=== PATIENT | female | born 1980 | race African-American/Black ===

== ENCOUNTER 2017-07-28 00:56 | Emergency (ER) | payer MEDICAID ==
[2017-07-28 01:09] VITALS: BP 153/108
[2017-07-28] MEDS ORDERED: PREGABALIN 75 MG CAPSULE PO ONE (01:39)
[2017-07-28] MEDS ORDERED: HYDROCODONE/ACETAMINOPHEN 5-325 MG TABLET PO ONE (01:39)
[2017-07-28] MEDS ORDERED: HYDROCODONE/ACETAMINOPHEN 5-325 MG (6 TAB/ER DISP) PO PRN (03:14)
--- NOTE | 2017-07-28 03:20 | ER Document Report ---
ED General - General Chief Complaint: Headache <24 hrs old Stated Complaint: FACE PAIN Time Seen by Provider: 07/28/17 01:16 Notes: Patient is a 36-year-old female who presents with complaint of facial pain. She has a history of trigeminal neuralgia. She just moved today for [place]. Says she ran out of her Lyrica a few days ago and her pain has come about. She is also on gabapentin, Tegretol, Lamictal. She says the Lyrica usually does help. Patient second complaint is of swelling in her right leg. It has been there for approximately a month but has worsened. She denies recent any injuries or trauma to the leg. Leg pain or leg swelling. She has not seen a doctor about the swelling in her leg. She has not had an ultrasound of her leg. No history of DVT or PE. No recent fevers or infections. No other complaints at this time. TRAVEL OUTSIDE OF THE U[place]S. IN LAST 30 DAYS: No - Related Data Allergies/Adverse Reactions: Penicillins Allergy (Verified 07/28/17 01:02) Sulfa (Sulfonamide Antibiotics) Allergy (Verified 07/28/17 01:02) Past Medical History - Social History Smoking Status: Current Every Day Smoker Frequency of alcohol use: None Drug Abuse: None Family History: Reviewed & Not Pertinent Patient has suicidal ideation: No Patient has homicidal ideation: No Pulmonary Medical History: Reports: Hx Asthma Renal/ Medical History: Denies: Hx Peritoneal Dialysis Review of Systems - Review of Systems Notes: My Normal Review Basic REVIEW OF SYSTEMS: CONSTITUTIONAL : Denies fever, chills, or sweats. Denies recent illness. EENT: Right-sided facial pain MUSCULOSKELETAL: Right leg swelling SKIN: Denies rash or skin lesions. NEUROLOGICAL: Denies sensory or motor loss. ALL OTHER SYSTEMS REVIEWED AND NEGATIVE. Physical Exam - Vital signs Vitals: Temp Pulse Resp BP Pulse Ox 98.4 F 87 17 153/108 H 99 07/28/17 01:07 07/28/17 01:07 07/28/17 01:07 07/28/17 01:07 07/28/17 01:07 - Notes Notes: General Appearance: Well nourished, alert, cooperative, no acute distress, moderate obvious discomfort. Vitals: reviewed, See vital signs table. Head: Tenderness over right side of face. Eyes: PERRL, EOMI, Conjuctiva clear Mouth: No decreasd moisture Neck: Supple, no neck tenderness, No thyromegaly Lungs: No wheezing, No rales, No rhonci, No accessory muscle use, good air exchange bilaterally. Heart: Normal rate, Regular rythm, No murmur, no rub Extremities: strength 5/5 in all extremities, good pulses in all extremities, no edema in the right lower extremity. Left lower extremity has just mild edema. I do have the patient pulled on her pants take a look at the skin along her thighs and leg where she is hurting. I do not see any redness or localized swelling that would cause concern for infection. No Rash. Skin: warm, dry, appropriate color, no rash Neuro: speech clear, oriented x 3, normal affect, responds appropriately to questions. Cranial nerves II through XII are intact. Distal sensation intact. Course - Re-evaluation Re-evalutation: 07/28/17 04:34 Patient has trigeminal neuralgia. I did re-prescribe her Lyrica for her. I gave her phone numbers to to local neurologist. She said she moved closer [place] therefore wants a neurologist in [place]. She is also followed by neurologist up in [place] due to possibly having surgery in the future. She said she would also follow-up with them in regards to possibly have the surgery performed. Also gave her a list of family doctors in the area. I offered for her to stay to morning time to obtain ultrasound of her leg as I told her is very important to rule out DVT of her leg. Patient is understanding of this but says she cannot stay to morning and prefers to have an outpatient prescription. I did also talked about giving her a shot of Lovenox the patient says that she does not want to be anticoagulated until she knows whether not fish she feels her has a blood clot. Patient said she would call to have her ultrasound performed today. I did write a prescription for this. I informed her that if she cannot get the ultrasound done through the prescription then she should just return to the ER during the daytime and have the ultrasound performed. Patient encouraged to return to the ER immediately if she has chest pain, shortness of breath, or feels unwell. Patient agrees with plan will be discharged home. Dictation of this chart was performed using voice recognition software; therefore, there may be some unintended grammatical errors. - Vital Signs Vital signs: Temp Pulse Resp BP Pulse Ox 98.4 F 87 17 153/108 H 99 07/28/17 01:07 07/28/17 01:07 07/28/17 01:07 07/28/17 01:07 07/28/17 01:07 Discharge - Discharge Clinical Impression: Right leg swelling, Trigeminal neuralgia of right side of face Condition: Good Disposition: HOME, SELF-CARE Instructions: Family Physicians / Practices, Oral Narcotic Medication ([facility]) Additional Instructions: Please call the number on the prescription this morning to make arrange to have your ultrasound performed today. If there is any difficulty arranging this you can always check in to the ER during the day time and it can be performed that way. It is very important you have this test done as it is used to rule out a blood clot in your leg. please return to the ER if you have chest pain, difficulty breathing, fevers, or worsening leg pain and swelling. Please follow up with Dr. Whipple or Dr. Spence for reevaluation and treatment of your trigeminal neuralgia. Please follow up with a primary care physician for continued management of your chronic medical problems and to help continued treatment of your leg swelling. Prescriptions: Pregabalin [Lyrica 75 mg Capsule] 75 mg PO Q12 #60 capsule Forms: Return to Work, Follow-Up Outpatient Testing Referrals: KATIE WHIPPLE MD [EM[facility]] - Follow up in 3-5 days AUSTIN SPENCE MD [NO LOCAL MD] - Follow up in 3-5 days
== END 2017-07-28 04:12 | disposition home or self-care (01) ==
LOC: ER 00:56
DX: G50.0 Trigeminal neuralgia (principal); R22.41 Localized swelling, mass and lump, right lower limb; F17.200 Nicotine dependence, unspecified, uncomplicated; Z88.0 Allergy status to penicillin; Z88.2 Allergy status to sulfonamides
CPT/HCPCS: 99284; J3490

== ENCOUNTER 2017-08-25 02:00 | Emergency (ER) | payer MEDICAID ==
[2017-08-25] MEDS ORDERED: BUTALB/ACETAMINOPHEN/CAFFEINE 1 TAB EACH PO ONE (02:56)
[2017-08-25] MEDS ORDERED: PREGABALIN 75 MG CAPSULE PO ONE (02:56)
--- NOTE | 2017-08-25 02:57 | ER Document Report ---
ED General - General Chief Complaint: Headache Stated Complaint: HEAD PAIN, SORE THROAT,FACIAL PAIN Time Seen by Provider: 08/25/17 02:45 Notes: Patient is a 36-year-old female who presents emergency department the chief complaint of right-sided facial pain with associated headache. Patient states that she has a history of migraines as well. She admits to light and sound sensitivity at this time. Did not take anything prior to arrival. She does have a history of trigeminal neuralgia. She did recently moved to [place] and has not been able to establish primary care in the area. She states that she was seen here about a month ago and was given a prescription for Lyrica which has helped. She states that she is also been out of her Lamictal, Tegretol, gabapentin. She denies any loss of vision, and states that this headache is consistent with her baseline headaches. She states that she has an established follow-up appointment next with her neurologist in [place] TRAVEL OUTSIDE OF THE U.S. IN LAST 30 DAYS: No - Related Data Allergies/Adverse Reactions: Penicillins Allergy (Verified 07/28/17 01:02) Sulfa (Sulfonamide Antibiotics) Allergy (Verified 07/28/17 01:02) Past Medical History - Social History Smoking Status: Never Smoker Family History: Reviewed & Not Pertinent Pulmonary Medical History: Reports: Hx Asthma Renal/ Medical History: Denies: Hx Peritoneal Dialysis Review of Systems - Review of Systems Constitutional: No symptoms reported EENT: See HPI Cardiovascular: No symptoms reported Respiratory: No symptoms reported Gastrointestinal: No symptoms reported Musculoskeletal: No symptoms reported Skin: No symptoms reported Neurological/Psychological: See HPI -: Yes All other systems reviewed and negative Physical Exam - Vital signs Vitals: Temp Pulse Resp BP Pulse Ox 97.9 F 89 16 167/109 H 95 08/25/17 02:05 08/25/17 02:05 08/25/17 02:05 08/25/17 02:05 08/25/17 02:05 - Notes Notes: PHYSICAL EXAM GENERAL: Alert, interacts well. HEAD: Normocephalic, atraumatic. EYES: Pupils equal, round, and reactive to light. Extraocular movements intact. ENT: Oral mucosa moist, tongue midline. NECK: Full range of motion. Supple. Trachea midline. LUNGS: Clear to auscultation bilaterally, no wheezes, rales, or rhonchi. No respiratory distress. HEART: Regular rate and rhythm. No murmurs, gallops, or rubs. EXTREMITIES: Moves all 4 extremities spontaneously. No edema, radial and dorsalis pedis pulses 2/4 bilaterally. No cyanosis. NEUROLOGICAL: Alert and oriented x4. Face symmetric. Tongue protrudes midline. Extraocular motions intact. Pupils are 2 mm and equally reactive. Normal speech, normal gait. 5 out of 5 strength in both the distal and proximal upper and lower extremities bilaterally. Sensation is grossly intact throughout. Pronator drift normal. PSYCH: Normal affect, normal mood. SKIN: Warm, dry, normal turgor. No rashes or lesions noted. Course - Re-evaluation Re-evalutation: 08/25/17 04:45 Patient does not have any focal neurologic deficits, nuchal rigidity, vital signs are within normal limits no papilledema. Patient is otherwise no acute distress and hemodynamically stable. Patient symptomatically improved after p.o. dose of Fioricet. Low index for suspicion of acute subarachnoid hemorrhage , meningitis or mass. Low suspicion for acute life-threatening etiology with intact neuro exam therefore no additional imaging or laboratory testing is indicated. Will discharge patient home with strict follow-up with PCP for blood pressure check within the next week. - Vital Signs Vital signs: Temp Pulse Resp BP Pulse Ox 97.9 F 91 16 126/82 H 93 08/25/17 02:05 08/25/17 03:23 08/25/17 05:03 08/25/17 05:03 08/25/17 05:03 Discharge - Discharge Clinical Impression: Trigeminal neuralgia Condition: Good Disposition: HOME, SELF-CARE Instructions: Trigeminal Neuralgia ([facility]) Prescriptions: Butalb/Acetaminophen/Caffeine [Fioricet (50-325-40 mg) Tablet] 1 - 2 tab PO Q4H #20 tab Carbamazepine [Tegretol XR 100 mg Ext Release Tablet] 100 mg PO BID #60 tab.sr.12h Gabapentin 400 mg PO TID #90 capsule Lamotrigine [Lamictal] 25 mg PO BID #60 tablet Pregabalin [Lyrica 75 mg Capsule] 75 mg PO Q12 #60 capsule Forms: Return to Work
[2017-08-25] MEDS ORDERED: GABAPENTIN 300 MG CAPSULE PO ONE (04:59)
[2017-08-25 05:11] VITALS: BP 126/82
== END 2017-08-25 05:21 | disposition home or self-care (01) ==
LOC: ER 02:00
DX: G50.0 Trigeminal neuralgia (principal); Z88.0 Allergy status to penicillin; Z88.2 Allergy status to sulfonamides
CPT/HCPCS: 99283; J3490 ×3

== ENCOUNTER 2017-10-17 17:42 | Emergency (ER) | payer MEDICAID ==
[2017-10-17] MEDS ORDERED: IPRATROPIUM/ALBUTEROL 0.5-2.5 MG/3 ML AMPUL NEB ONE ×2 (18:05→20:58)
--- NOTE | 2017-10-17 18:12 | ER Document Report ---
ED Medical Screen (RME) - General Chief Complaint: Shortness Of Breath Stated Complaint: CHEST PAIN Time Seen by Provider: 10/17/17 18:08 Mode of Arrival: Wheelchair Information source: Patient Notes: 36-year-old female history of asthma presents with complaints of shortness breath difficulty breathing. Patient denies any fevers or chills notes she started off with a sore throat. Patient admits to right leg pain over the past few days I have greeted and performed a rapid initial assessment of this patient. A comprehensive ED assessment and evaluation of the patient, analysis of test results and completion of the medical decision making process will be conducted by additional ED providers. PHYSICAL EXAMINATION: GENERAL: Well-appearing, well-nourished and in moderate distress. HEAD: Atraumatic, normocephalic. EYES: Pupils equal round extraocular movements intact, conjunctiva are normal. ENT: Nares patent NECK: Normal range of motion LUNGS: Audible wheezing inspiratory expiratory moderate retractions Musculoskeletal: Normal range of motion NEUROLOGICAL: Normal speech, normal gait. PSYCH: Normal mood, normal affect. SKIN: Warm, Dry, normal turgor, no rashes or lesions noted. TRAVEL OUTSIDE OF THE U.S. IN LAST 30 DAYS: No - Related Data Allergies/Adverse Reactions: Penicillins Allergy (Verified 10/17/17 17:43) Sulfa (Sulfonamide Antibiotics) Allergy (Verified 10/17/17 17:43) Past Medical History Pulmonary Medical History: Reports: Hx Asthma Renal/ Medical History: Denies: Hx Peritoneal Dialysis Physical Exam - Vital signs Vitals: Temp Pulse Resp BP Pulse Ox 99.0 F 130 H 20 146/99 H 96 10/17/17 17:47 10/17/17 17:47 10/17/17 17:47 10/17/17 17:47 10/17/17 17:47 Course - Vital Signs Vital signs: Temp Pulse Resp BP Pulse Ox 99.0 F 130 H 20 146/99 H 96 10/17/17 17:47 10/17/17 17:47 10/17/17 17:47 10/17/17 17:47 10/17/17 17:47
--- NOTE | 2017-10-17 18:23 | EKG REPORT ---
SEVERITY:- BORDERLINE ECG - SINUS TACHYCARDIA BORDERLINE T ABNORMALITIES, INFERIOR LEADS : Confirmed by: Shailesh Drake MD 17-Oct-2017 18:23:26
--- NOTE | 2017-10-17 18:55 | ER Document Report ---
ED Cardiac - General Chief Complaint: Shortness Of Breath Stated Complaint: CHEST PAIN Time Seen by Provider: 10/17/17 18:08 Mode of Arrival: Wheelchair Information source: Patient TRAVEL OUTSIDE OF THE U.S. IN LAST 30 DAYS: No - HPI Patient complains to provider of: Chest pain, Shortness of breath Use of: denies: Alcohol, Amphetamines, Bath salts, Caffeine, Cocaine, Decongestants Was the onset of pain: Gradual When did pain begin: 3 DAYS AGO Is the pain a: New problem Chest pain location: Substernal Quality of pain: Tightness Chest pain radiation location: None Severity now: Mild Severity at worst: Moderate Chest pain precipitating factors: Coughing Cardiac risk factors: denies: Diabetes, Hypertension, Dyslipidemia, Hx CHF, Hx [place] Positive cardiac history: No Associated symptoms: Lightheaded, Shortness of breath, Weakness, Other - PAIN R. L.E.. denies: Syncope Exacerbated by: Standing Relieved by: Nothing Similar symptoms previously: Yes - W/ PNEUMONIA Recently seen / treated by doctor: No - Related Data Allergies/Adverse Reactions: Penicillins Allergy (Verified 10/17/17 17:43) Sulfa (Sulfonamide Antibiotics) Allergy (Verified 10/17/17 17:43) Past Medical History - General Information source: Patient - Social History Smoking Status: Current Every Day Smoker Frequency of alcohol use: None Drug Abuse: None Family History: Reviewed & Not Pertinent Patient has suicidal ideation: No Patient has homicidal ideation: No - Past Medical History Cardiac Medical History: Reports: None Pulmonary Medical History: Reports: Hx Asthma, Hx Pneumonia EENT Medical History: Reports: None Neurological Medical History: Reports: Other - TRIGEMINAL NEURALGIA Endocrine Medical History: Reports: None Renal/ Medical History: Reports: None. Denies: Hx Peritoneal Dialysis Malignancy Medical History: Reports: None GI Medical History: Reports: None Musculoskeltal Medical History: Reports None Psychiatric Medical History: Reports: None Surgical Hx: Negative Review of Systems - Review of Systems Constitutional: Weakness EENT: No symptoms reported Cardiovascular: See HPI Respiratory: See HPI, Cough Gastrointestinal: No symptoms reported Genitourinary: No symptoms reported Female Genitourinary: No symptoms reported Musculoskeletal: No symptoms reported Skin: No symptoms reported Neurological/Psychological: See HPI Physical Exam - Vital signs Vitals: Temp Pulse Resp BP Pulse Ox 99.0 F 130 H 20 146/99 H 96 10/17/17 17:47 10/17/17 17:47 10/17/17 17:47 10/17/17 17:47 10/17/17 17:47 Interpretation: Hypertensive, Tachycardic. No: Hypotensive, Hypoxic, Tachypneic - General General appearance: Alert, Anxious In distress: None - HEENT Head: Normocephalic Eyes: Normal Conjunctiva: Normal Ears: Normal Nasal: Normal Mouth/Lips: Normal Mucous membranes: Normal Pharynx: Normal Neck: Normal - Respiratory Respiratory status: No respiratory distress Chest status: Nontender Breath sounds: Wheezing - MILD EXPIRATORY, ALL SAWYER - Cardiovascular Rhythm: Regular, Tachycardia Heart sounds: Normal auscultation Murmur: No - Abdominal Inspection: Normal Distension: No distension - Extremities General upper extremity: Normal inspection General lower extremity: Tender - RIGHT - Neurological Neuro grossly intact: Yes Cognition: Normal Orientation: AAOx4 - Psychological Associated symptoms: Normal affect, Normal mood - Skin Skin Temperature: Warm Skin Moisture: Dry Skin Color: Normal Skin Turgor: Elastic Course - Vital Signs Vital signs: Temp Pulse Resp BP Pulse Ox 99.0 F 130 H 24 H 146/99 H 94 10/17/17 17:47 10/17/17 17:47 10/17/17 19:15 10/17/17 17:47 10/17/17 19:15 - Laboratory Result Diagrams: 10/17/17 18:40 10/17/17 18:40 Laboratory results interpreted by me: 10/17/17 10/17/17 10/17/17 18:40 18:40 18:40 MCV 77 L MCH 25.9 L ESR Carbon Dioxide 31 H Free T3 pg/mL 5.58 H Urine Protein Urine Ascorbic Acid 10/17/17 10/17/17 18:40 19:30 MCV MCH ESR 36 H Carbon Dioxide Free T3 pg/mL Urine Protein 30 H Urine Ascorbic Acid 40 H - EKG Interpretation by Fl EKG shows normal: Sinus rhythm, [place], Intervals, QRS Complexes, ST-T Waves - BORDERLINE T ABNLS, INF. Rate: Tachycardia Discharge - Discharge Clinical Impression: Asthma Qualifiers: Asthma severity: moderate Asthma persistence: unspecified Asthma complication type: with acute exacerbation Qualified Code(s): J45.901 - Unspecified asthma with (acute) exacerbation Chest pain Qualifiers: Chest pain type: chest pain on breathing Qualified Code(s): R07.1 - Chest pain on breathing; R07.81 - Pleurodynia Knee pain, right Qualifiers: Chronicity: chronic Qualified Code(s): M25.561 - Pain in right knee; G89.29 - Other chronic pain; G89.29 - Other chronic pain Condition: Stable Disposition: HOME, SELF-CARE Instructions: Bronchitis With Bronchospasm (Wheezing) ([facility]), Inhaled Bronchodilators ([facility]), Corticosteroid Medication ([facility]) Additional Instructions: REST, DRINK PLENTY OF FLUIDS. MEDS DIRECTED. FOLLOW UP WITH YOUR PRIMARY CARE PROVIDER IN THE NEXT 3-5 DAYS, CALL TOMORROW FOR APPOINTMENT. RETURN TO E.R. IF YOU GET WORSE ANY TIME. Prescriptions: Prednisone [Deltasone 10 mg Tablet] 10 mg PO ASDIR PRN #21 tablet PRN Reason:
[2017-10-17 19:05] LABS: ABSOLUTE BASOPHILS # (AUTO) 0.1 10^3/uL (0.0-0.2); ABSOLUTE EOSINOPHILS # (AUTO) 0.3 10^3/uL (0.0-0.6); ABSOLUTE LYMPHOCYTES (AUTO) 2.6 10^3/uL (0.5-4.7); ABSOLUTE MONOCYTES (AUTO) 0.7 10^3/uL (0.1-1.4); ABSOLUTE NEUT (AUTO) 2.6 10^3/uL (1.7-8.2); BASOPHILS % (AUTO) 0.9 % (0-2); EOSINOPHILS % (AUTO) 4.5 % (0-6); HEMATOCRIT 40.1 % (36.0-47.0); HEMOGLOBIN 13.5 g/dL (12.0-15.5); MEAN CORPUSCULAR HEMOGLOBIN 25.9 pg (27.0-33.4); MEAN CORPUSCULAR HGB CONC 33.5 g/dL (32.0-36.0); MEAN CORPUSCULAR VOLUME 77 fl (80-97); MONOCYTES % (AUTO) 11.3 % (3-13); PLATELET COUNT 197 10^3/uL (150-450); RED CELL DISTRIBUTION WIDTH 13.3 % (11.5-14.0); SEGMENTED NEUTROPHILS % (AUTO) 42.3 % (42-78); TOTAL CELLS COUNTED % (AUTO) 100 %; WHITE BLOOD COUNT 6.3 10^3/uL (4.0-10.5)
[2017-10-17] MEDS ORDERED: DEXAMETHASONE SOD PHOS INJ 10 MG/1 ML VIAL IV ONE (19:06)
[2017-10-17 19:12] LABS: ALANINE AMINOTRANSFERASE 16 U/L (9-52); ALBUMIN 4.5 g/dL (3.5-5.0); ALKALINE PHOSPHATASE 116 U/L (38-126); ANION GAP 9 (5-19); ASPARTATE AMINO TRANSFERASE 21 U/L (14-36); BILIRUBIN,DIRECT 0.3 mg/dL (0.0-0.4); BILIRUBIN,TOTAL 0.3 mg/dL (0.2-1.3); BLOOD UREA NITROGEN 13 mg/dL (7-20); CALCIUM 9.3 mg/dL (8.4-10.2); CARBON DIOXIDE 31 mmol/L (22-30); CHLORIDE 103 mmol/L (98-107); CREATINE KINASE 103 U/L (30-135); GLUCOSE 94 mg/dL (75-110); POTASSIUM 3.8 mmol/L (3.6-5.0); SODIUM 143.4 mmol/L (137-145)
[2017-10-17 19:25] LABS: CREATINE KINASE MB 0.35 ng/mL (<4.55)
[2017-10-17 19:26] LABS: TROPONIN I < 0.012 ng/mL
[2017-10-17 19:28] LABS: FREE T3 5.58 pg/mL (2.77-5.27); FREE T4 (FREE THYROXINE) 1.11 ng/dL (0.78-2.19)
[2017-10-17 19:42] LABS: THYROID STIMULATING HORMONE 1.99 uIU/mL (0.47-4.68)
[2017-10-17 20:04] LABS: APPEARANCE,URINE SLIGHTLY-CLOUDY; BILIRUBIN,URINE NEGATIVE (NEGATIVE); COLOR,URINE AMBER; GLUCOSE, URINE NEGATIVE (NEGATIVE); KETONES,URINE NEGATIVE (NEGATIVE); LEUKOCYTE ESTERASE,URINE NEGATIVE (NEGATIVE); NITRITE,URINE NEGATIVE (NEGATIVE); PROTEIN,URINE 30 mg/dL (NEGATIVE); URINE SPECIFIC GRAVITY 1.031; UROBILINOGEN,URINE NEGATIVE mg/dL (<2.0)
[2017-10-17] MEDS ORDERED: NORMAL SALINE 1000 ML 1,000 ML IV PRN (20:12)
[2017-10-17 20:20] LABS: URINE AMPHETAMINES SCREEN NEGATIVE; URINE BARBITURATES SCREEN NEGATIVE; URINE BENZODIAZEPINES SCREEN NEGATIVE; URINE COCAINE SCREEN NEGATIVE; URINE MARIJUANA (THC) SCREEN NEGATIVE; URINE METHADONE SCREEN NEGATIVE; URINE PHENCYCLIDINE SCREEN NEGATIVE
--- NOTE | 2017-10-17 21:01 | RADIOLOGY REPORT (SQ) ---
EXAM DESCRIPTION: CTA CHEST COMPLETED DATE/TIME: 10/17/2017 7:59 pm REASON FOR STUDY: sob tachycardic COMPARISON: None. TECHNIQUE: CT scan of the chest performed using helical scanning technique with dynamic intravenous contrast injection. Images reviewed with lung, soft tissue and bone windows. Reconstructed coronal and sagittal MPR images reviewed. Additional 3 dimensional post-processing performed to develop Maximal Intensity Projection images (NH P). All images stored on PACS. All CT scanners at this facility use dose modulation, iterative reconstruction, and/or weight based d osing when appropriate to reduce radiation dose to as low as reasonably achievable (ALARA). [facility]: Dose Right [facility]: CareDose [facility]: Dose Right [facility]: Teradose 4D [facility]: [employer] Software CONTRAST TYPE AND DOSE: contrast/concentration: Isovue 370.00 mg/ml; Total Contrast Delivered: 87.0 ml; Total Saline Delivered: 65.0 ml Contrast bolus optimized for the pulmonary arteries. Not diagnostic for the aorta. RENAL FUNCTION: GFR > 60. RADIATION DOSE: CT Rad equipment meets quality standard of care and radiation dose reduction techniq ues were employed. CTDIvol: 25.8 - 26.4 mGy. DLP: 903 mGy-cm. . LIMITATIONS: None. FINDINGS: LUNGS AND PLEURA: No masses, infiltrates, pneumothorax. No pleural effusions, calcificati ons. AORTA AND GREAT VESSELS: No aneurysm. Contrast bolus not optimized for the aorta. HEART: No pericardial effusion. No significant coronary artery calcifications. PULMONARY ARTERIES: No emboli visualized in the main pulmonary arteries or the segmental branches. HILAR AND MEDIASTINAL STRUCTURES: No identified masses or abnormal nodes. HARDWARE: None in the chest. UPPER ABDOMEN: No significant findings. Limited exam. THYROID AND OTHER SOFT TISSUES: No masses. No adenopathy. BONES: No acute finding. 3D MIPS: Confirm above findings. OTHER: No other significant finding. IMPRESSION: No emboli visualized in the main pulmonary arteries or the segmental branches. No consolidation or pleural effusion. COMMENT: Quality ID # [id number]: Final reports with documentation of one or more dose reduction techniques (e.g., Automated exposure control, adjustment of the mA and/or kV according to patient size, use of iterative reconstruction technique) TECHNICAL DOCUMENTATION: JOB ID: [id number] [id number] 2010 [employer]- All Rights Reserved Reading location - IP/workstation name: [email or web address]
[2017-10-17] MEDS ORDERED: OXYCODONE-ACETAMINOPHEN 5-325 MG TABLET PO ONE (22:15)
[2017-10-17] MEDS ORDERED: ALBUTEROL SULFATE HFA (90 MCG/PUFF) 8 GM MDI (1 MDI/ER DISP) IH ONE (22:18)
[2017-10-17 22:30] VITALS: BP 158/111
== END 2017-10-17 22:45 | disposition home or self-care (01) ==
LOC: ER 17:42
DX: J45.901 Unspecified asthma with (acute) exacerbation (principal); R07.1 Chest pain on breathing; M25.561 Pain in right knee; G89.29 Other chronic pain; R06.02 Shortness of breath; R07.9 Chest pain, unspecified; R05 Cough; R53.1 Weakness; F17.200 Nicotine dependence, unspecified, uncomplicated
CPT/HCPCS: 93005; 94640 ×2; 99285; 96361; 96374; 36415; 84439; 82553; 82550; 84443; 85025; 85652; 80053; 81001; 84484; 80307; 84481; 71275; 93010; J7030; J1100; J3490; J7620

== ENCOUNTER 2017-11-03 13:30 | Emergency (ER) | payer MEDICAID ==
[2017-11-03] MEDS ORDERED: BACLOFEN 10 MG TABLET PO ONE (14:29)
[2017-11-03] MEDS ORDERED: PREDNISONE 20 MG TABLET PO ONE (14:29)
[2017-11-03] MEDS ORDERED: KETOROLAC TROMETHAMINE 60 MG/2 ML SDV IM ONE (14:29)
--- NOTE | 2017-11-03 14:35 | ER Document Report ---
HPI - HPI Patient complains to provider of: Facial pain Onset: This morning Onset/Duration: Waxing and waning Quality of pain: Sharp Pain Level: 4 Context: Patient presents complaining of right-sided facial pain that she attributes to her trigeminal neuralgia. Patient states that she has had episodes similar to this in the past. Patient reports that her symptoms started around 11 AM today lasted for an hour and then resolved, patient states that the pain is starting to return. Patient states that she has had some blurred vision but that she is supposed to wear glasses and has not been wearing any because she does not have glasses at home. Patient does complain of nausea. Patient states that she has been compliant with her usual medications to treat her symptoms. Patient denies any head injury, fever. Patient denies any dental problems. Associated Symptoms: Nausea, Other - Facial pain. denies: Fever, Vomiting Exacerbated by: Movement Relieved by: Denies Similar symptoms previously: Yes - ROS ROS below otherwise negative: Yes Systems Reviewed and Negative: Yes All other systems reviewed and negative - CONSTITUTIONAL Constitutional: DENIES: Fever, Chills - EENT EENT: DENIES: Sore Throat, Congestion - NEURO Neurology: REPORTS: Headache - Right-sided facial pain, Vision blurred. DENIES : Dizzinesss / Vertigo - RESPIRATORY Respiratory: DENIES: Trouble Breathing, Coughing - GASTROINTESTINAL Gastrointestinal: REPORTS: Nausea. 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 - INFECTION CONTROL TRAVEL OUTSIDE OF THE [place] IN LAST 30 DAYS: No - HEENT HEENT: Atraumatic, Normocephalic. negative: Tympanic Membrane Red, Tympanic Membrane Bulging - NECK Neck: Normal Inspection - RESPIRATORY Respiratory: Breath Sounds Normal, No Respiratory Distress - CARDIOVASCULAR Cardiovascular: Regular Rate, Regular Rhythm - BACK Back: Normal Inspection Notes: No spinal tenderness - MUSCULOSKELETAL/EXTREMETIES Musculoskeletal/Extremeties: MAEW - NEURO Level of Consciousness: Awake, Alert, Appropriate Motor/Sensory: No Motor Deficit - DERM Integumentary: Warm, Dry, No Rash Course - Re-evaluation Re-evalutation: 11/03/17 14:31 Patient is not agreeable with physical examination of the scalp, face, neck and oral cavity. Patient is awake alert and oriented and able to competently make her medical decisions. Patient states she has had trigeminal neuralgia flareups in the past and this is typical presentation. Patient states that her management has typically involve steroid use. 11/03/17 Patient visibly more comfortable and able to speak moving her mouth. Patient tolerating oral fluids and applesauce without difficulty. Patient encouraged to follow-up with her primary doctor for neurology referral. Patient is agreeable with this discharge plan of care. - Vital Signs Vital signs: Temp Pulse Resp BP Pulse Ox 98.5 F 76 24 H 126/92 H 97 11/03/17 13:36 11/03/17 13:36 11/03/17 13:36 11/03/17 13:36 11/03/17 13:36 Discharge - Discharge Clinical Impression: Facial pain, History of trigeminal neuralgia Condition: Stable Disposition: HOME, SELF-CARE Instructions: Steroid Medication, Toradol Injection ([facility]), Trigeminal Neuralgia ([facility]) Additional Instructions: Return immediately for any new or worsening symptoms Followup with your primary care provider, call tomorrow to make a followup appointment Follow-up with a neurologist for further evaluation and management, call tomorrow for an appointment Prescriptions: Baclofen 5 mg PO TID PRN #15 tablet PRN Reason: Prednisone [Deltasone 20 mg Tablet] 3 tab PO DAILY 4 Days tablet Forms: Smoking Cessation Education, Return to Work Referrals: CARITO SMITH MD [COMMUNITY BASED STAFF] - Follow up tomorrow AUSTIN SPENCE MD [NO LOCAL MD] - Follow up tomorrow
[2017-11-03] MEDS ORDERED: HYDROCODONE/ACETAMINOPHEN 5-325 MG TABLET PO ONE (14:39)
[2017-11-03 16:26] VITALS: BP 154/107
== END 2017-11-03 16:27 | disposition home or self-care (01) ==
LOC: ER 13:30
DX: G50.0 Trigeminal neuralgia (principal); R11.0 Nausea; H53.8 Other visual disturbances; Z91.19 Patient's noncompliance with other medical treatment and regimen; F17.200 Nicotine dependence, unspecified, uncomplicated; J45.909 Unspecified asthma, uncomplicated
CPT/HCPCS: 99284; 96372; J3490; J1885; J7512

== ENCOUNTER 2017-11-06 19:04 | Emergency (ER) | payer MEDICAID ==
[2017-11-06] MEDS ORDERED: METOCLOPRAMIDE HCL INJ/PF 10 MG/2 ML SDV IV ONE (20:33)
[2017-11-06] MEDS ORDERED: MORPHINE SULFATE 10 MG/ML INJ IV ONE (20:33)
--- NOTE | 2017-11-06 20:36 | ER Document Report ---
ED General - General Chief Complaint: Chest pain, Trigeminal nerve pain, passed out at home Stated Complaint: CHEST PAIN Time Seen by Provider: 11/06/17 20:24 Notes: Patient is a 36-year-old female comes emergency department with multiple complaints. She states her biggest complaint is pain in the right side of her face from trigeminal neuralgia, states that she ran out of her Lyrica yesterday , states she has not established with a new neurologist and they previously prescribed this before she moved here. She states they diagnosed with trigeminal neuralgia and she wants to follow back up with a neurologist to consider a procedure because of frequent flareups of pain. She was on a recent course of steroids, she just started another course, took 2 days, was seen 3 days ago, forgot her dose today. She will do states that she will have sharp pains intermittently in the center of her chest and also pain in her right upper shoulder area. No current chest pain. Pain with moving right shoulder. This has been going on since yesterday. She denies fever chills, vomiting, pain in a different part of her head, neck pain. She does report intermittent nausea. She smokes, denies alcohol, denies recreational drugs. TRAVEL OUTSIDE OF THE [place] IN LAST 30 DAYS: No - Related Data Allergies/Adverse Reactions: Penicillins Allergy (Verified 10/17/17 17:43) Sulfa (Sulfonamide Antibiotics) Allergy (Verified 10/17/17 17:43) Past Medical History - General Information source: Patient - Social History Smoking Status: Never Smoker Frequency of alcohol use: None Lives with: Family Family History: Reviewed & Not Pertinent Patient has suicidal ideation: No Patient has homicidal ideation: No Pulmonary Medical History: Reports: Hx Asthma, Hx Pneumonia Neurological Medical History: Reports: Hx Migraine Renal/ Medical History: Denies: Hx Peritoneal Dialysis Past Surgical History: Reports: Hx Gynecologic Surgery Review of Systems - Review of Systems Constitutional: No symptoms reported EENT: No symptoms reported Cardiovascular: See HPI Respiratory: No symptoms reported Gastrointestinal: See HPI Genitourinary: No symptoms reported Female Genitourinary: No symptoms reported Musculoskeletal: No symptoms reported Skin: No symptoms reported Hematologic/Lymphatic: No symptoms reported Neurological/Psychological: See HPI Physical Exam - Vital signs Vitals: Temp Pulse Resp BP Pulse Ox 98.6 F 73 20 142/95 H 98 11/06/17 19:20 07/01/18 19:20 11/06/17 19:20 11/06/17 19:20 11/06/17 19:20 - Notes Notes: GENERAL: Alert, interacts well. No acute distress. HEAD: Normocephalic, atraumatic. EYES: Pupils equal, round, and reactive to light. Extraocular movements intact. ENT: Difficult to see clearly in the mouth because of hesitation to open the mouth but from what I can visualize this was normal. Oral mucosa moist, tongue midline. [Nares patent, no nasal septal hematoma, TM's intact.] NECK: Full range of motion. Supple. Trachea midline. LUNGS: Clear to auscultation bilaterally, no wheezes, rales, or rhonchi. No respiratory distress. HEART: Regular rate and rhythm. No murmur ABDOMEN: Soft, non-tender. Non-distended. Bowel sounds present in all 4 quadrants. EXTREMITIES: Moves all 4 extremities spontaneously. No edema, normal radial and dorsalis pedis pulses bilaterally. No cyanosis. BACK: no cervical, thoracic, lumbar midline tenderness. No saddle anesthesia, normal distal neurovascular exam. NEUROLOGICAL: Alert and oriented x3. Normal speech. [cranial nerves II through XII grossly intact]. PSYCH: Normal affect, normal mood. SKIN: Warm, dry, normal turgor. No rashes or lesions noted. Course - Re-evaluation Re-evalutation: Further clarification with patient's history was asked, patient states that she gets a lot of burning and nausea with her chest pain, I suspect this is gastrointestinal, chest x-ray and EKG with no acute findings. test included. On reevaluation patient moving her face expressively and normally, patient had no signs of distress initially or afterwards, normal neurological exam. CBC, chemistry unremarkable. No current chest pain, no tachycardia, low suspicion of PE, ACS, or other emergent abnormality with the chest pain. test is actually positive, hCG quantitative was performed and shows suggestion of early . Discussed this with patient. She was initially very surprised, provided with copy of hCG, discussed treatment, patient states that with previous pregnancies she was given Lyrica because without it she cannot function, she requests this, I discussed that this has possible teratogenic effects and she states this is already been discussed with her and she will take the risk and she needs the medication, she requests this be prescribed, this was prescribed after discussion. Discussed follow-up, return precautions, patient states understanding and agreement. Provided with nausea medication at home. Patient hypertensive at discharge although she has no headache, no chest pain, no other symptoms at this time. She has home medication for this which she will continue and have this reevaluated. - Vital Signs Vital signs: Temp Pulse Resp BP Pulse Ox 97.7 F 64 18 176/108 H 98 11/07/17 00:27 11/07/17 00:27 11/07/17 00:27 11/07/17 00:27 11/07/17 00:27 - Laboratory Result Diagrams: 11/06/17 21:00 11/06/17 21:00 Laboratory results interpreted by me: 11/06/17 11/06/17 11/06/17 21:00 21:00 21:00 WBC 11.0 H MCV 77 L MCH 25.4 L RDW 14.1 H Carbon Dioxide 34 H Serum HCG, Qual POSITIVE H Beta HCG, Quant 11/06/17 22:48 WBC MCV MCH RDW Carbon Dioxide Serum HCG, Qual Beta HCG, Quant 16.12 H Discharge - Discharge Clinical Impression: Facial pain, Nausea Chest pain Qualifiers: Chest pain type: unspecified Qualified Code(s): R07.9 - Chest pain, unspecified Back pain Qualifiers: Back pain location: back pain in unspecified location Chronicity: acute Back pain laterality: right Qualified Code(s): M54.9 - Dorsalgia, unspecified Condition: Stable Disposition: HOME, SELF-CARE Additional Instructions: Your workup shows . Your evaluation does not show any any other new concerning findings. appears to be very early. Take Reglan for nausea, stop prednisone, stop the baclofen. Follow-up with the BUILDING CONSTRUCTION IRONWORKER referral. Because you have decided to continue Lyrica and previous pregnancies, despite the risks of harmful effects on the fetus this was provided for you to take if trigeminal neuralgia pain requires it. Return for any concerning symptoms including uncontrolled vomiting, fever, difficulty breathing, or any other concerning or worsening symptoms. Prescriptions: Metoclopramide HCl [Reglan] 5 mg PO ASDIR PRN #30 tablet PRN Reason: Pregabalin [Lyrica 75 mg Capsule] 75 mg PO Q12 #60 capsule Referrals: [facility] [Provider Group] - Follow up as needed
--- NOTE | 2017-11-06 21:14 | RADIOLOGY REPORT (SQ) ---
EXAM DESCRIPTION: CHEST SINGLE VIEW COMPLETED DATE/TIME: 11/06/2017 9:07 pm REASON FOR STUDY: chest pain COMPARISON: None. EXAM PARAMETERS: NUMBER OF VIEWS: One view. TECHNIQUE: Single frontal radiographic view of the chest acquired. RADIATION DOSE: NA LIMITATIONS: None. FINDINGS: LUNGS AND PLEURA: No opacities, masses or pneumothorax. No pleural effusion. MEDIASTINUM AND HILAR STRUCTURES: No masses. Contour normal. HEART AND VASCULAR STRUCTURES: Heart normal in size. Normal vasculature. BONES: No acute findings. HARDWARE: None in the chest. OTHER: No other significant finding. IMPRESSION: NO ACUTE RADIOGRAPHIC FINDING IN THE CHEST. TECHNICAL DOCUMENTATION: JOB ID: [id number] [employer]- All Rights Reserved Reading location - IP/workstation name: [email or web address]
[2017-11-06 21:22] LABS: ABSOLUTE BASOPHILS # (AUTO) 0.1 10^3/uL (0.0-0.2); ABSOLUTE EOSINOPHILS # (AUTO) 0.1 10^3/uL (0.0-0.6); ABSOLUTE LYMPHOCYTES (AUTO) 3.8 10^3/uL (0.5-4.7); ABSOLUTE MONOCYTES (AUTO) 0.8 10^3/uL (0.1-1.4); ABSOLUTE NEUT (AUTO) 6.3 10^3/uL (1.7-8.2); BASOPHILS % (AUTO) 1.2 % (0-2); EOSINOPHILS % (AUTO) 0.7 % (0-6); HEMATOCRIT 37.9 % (36.0-47.0); HEMOGLOBIN 12.6 g/dL (12.0-15.5); LYMPHOCYTES % (AUTO) 34.6 % (13-45); MEAN CORPUSCULAR HEMOGLOBIN 25.4 pg (27.0-33.4); MEAN CORPUSCULAR HGB CONC 33.2 g/dL (32.0-36.0); MEAN CORPUSCULAR VOLUME 77 fl (80-97); MONOCYTES % (AUTO) 6.9 % (3-13); PLATELET COUNT 208 10^3/uL (150-450); RED BLOOD COUNT 4.94 10^6/uL (3.72-5.28); RED CELL DISTRIBUTION WIDTH 14.1 % (11.5-14.0); SEGMENTED NEUTROPHILS % (AUTO) 56.6 % (42-78); TOTAL CELLS COUNTED % (AUTO) 100 %
[2017-11-06 21:37] LABS: ANION GAP 6 (5-19); BLOOD UREA NITROGEN 19 mg/dL (7-20); CALCIUM 8.6 mg/dL (8.4-10.2); CARBON DIOXIDE 34 mmol/L (22-30); CHLORIDE 102 mmol/L (98-107); GLUCOSE 90 mg/dL (75-110); POTASSIUM 3.9 mmol/L (3.6-5.0); SODIUM 141.9 mmol/L (137-145)
[2017-11-06] MEDS ORDERED: OXYCODONE-ACETAMINOPHEN 5-325 MG TABLET PO ONE (23:17)
[2017-11-06] MEDS ORDERED: HYDROCODONE/ACETAMINOPHEN 5-325 MG (6 TAB/ER DISP) PO PRN (23:56)
[2017-11-07 00:36] VITALS: BP 176/108
--- NOTE | 2017-11-07 06:53 | EKG REPORT ---
SEVERITY:- NORMAL ECG - SINUS RHYTHM : Confirmed by: Cass Reyna MD 07-Nov-2017 06:53:05
== END 2017-11-07 00:36 | disposition home or self-care (01) ==
LOC: ER 19:04
DX: R07.9 Chest pain, unspecified (principal); M54.9 Dorsalgia, unspecified; R11.0 Nausea; G50.0 Trigeminal neuralgia; M25.511 Pain in right shoulder; Z79.899 Other long term (current) drug therapy; F17.200 Nicotine dependence, unspecified, uncomplicated; J45.909 Unspecified asthma, uncomplicated
CPT/HCPCS: 93005; 99285; 96374; 96375; 36415; 84702; 84703; 85025; 80048; 71045; 93010; J2765; J2270

== ENCOUNTER 2017-11-16 12:55 | Emergency (ER) | payer MEDICAID ==
--- NOTE | 2017-11-16 13:40 | ER Document Report ---
ED Medical Screen (RME) - General Chief Complaint: Abdominal Pain Stated Complaint: LOWER ABDOMINAL PAIN Time Seen by Provider: 11/16/17 13:32 Notes: Patient is a 37-year-old female, history of prior ectopic , presents with increased right lower pelvic pain. Seen in the ER 10 days ago and her beta hCG was 16. PE: Mild right lower abdominal tenderness (exam limited by position in RME chair ) I have greeted and performed a rapid initial assessment of this patient. A comprehensive ED assessment and evaluation of the patient, analysis of test results and completion of the medical decision making process will be conducted by additional ED providers. TRAVEL OUTSIDE OF THE [place] IN LAST 30 DAYS: No - Related Data Allergies/Adverse Reactions: Penicillins Allergy (Verified 11/16/17 13:30) Sulfa (Sulfonamide Antibiotics) Allergy (Verified 11/16/17 13:30) Past Medical History - Social History Chew tobacco use (# tins/day): No Frequency of alcohol use: Rare Drug Abuse: None Pulmonary Medical History: Reports: Hx Asthma, Hx Pneumonia Neurological Medical History: Reports: Hx Migraine Renal/ Medical History: Denies: Hx Peritoneal Dialysis Past Surgical History: Reports: Hx Gynecologic Surgery - fallopian tube/ovary removed Physical Exam - Vital signs Vitals: Temp Pulse Resp BP Pulse Ox 98.1 F 81 20 137/98 H 98 11/16/17 13:13 11/16/17 13:13 11/16/17 13:13 11/16/17 13:13 11/16/17 13:13 Course - Vital Signs Vital signs: Temp Pulse Resp BP Pulse Ox 98.1 F 81 20 137/98 H 98 11/16/17 13:13 11/16/17 13:13 11/16/17 13:13 11/16/17 13:13 11/16/17 13:13 Doctor's Discharge - Discharge Referrals: CARL WHITMAN MD [Primary Care Provider] - Follow up as needed
[2017-11-16 14:19] LABS: ABSOLUTE EOSINOPHILS # (AUTO) 0.2 10^3/uL (0.0-0.6); ABSOLUTE LYMPHOCYTES (AUTO) 2.2 10^3/uL (0.5-4.7); ABSOLUTE MONOCYTES (AUTO) 0.7 10^3/uL (0.1-1.4); ABSOLUTE NEUT (AUTO) 3.9 10^3/uL (1.7-8.2); BASOPHILS % (AUTO) 0.5 % (0-2); EOSINOPHILS % (AUTO) 2.7 % (0-6); HEMATOCRIT 35.6 % (36.0-47.0); HEMOGLOBIN 12.3 g/dL (12.0-15.5); LYMPHOCYTES % (AUTO) 31.4 % (13-45); MEAN CORPUSCULAR HEMOGLOBIN 26.1 pg (27.0-33.4); MEAN CORPUSCULAR HGB CONC 34.4 g/dL (32.0-36.0); MEAN CORPUSCULAR VOLUME 76 fl (80-97); MONOCYTES % (AUTO) 9.7 % (3-13); PLATELET COUNT 179 10^3/uL (150-450); RED BLOOD COUNT 4.69 10^6/uL (3.72-5.28); RED CELL DISTRIBUTION WIDTH 14.9 % (11.5-14.0); SEGMENTED NEUTROPHILS % (AUTO) 55.7 % (42-78); TOTAL CELLS COUNTED % (AUTO) 100 %
[2017-11-16 14:37] LABS: ALANINE AMINOTRANSFERASE 19 U/L (9-52); ALKALINE PHOSPHATASE 105 U/L (38-126); ANION GAP 10 (5-19); ASPARTATE AMINO TRANSFERASE 12 U/L (14-36); BILIRUBIN,DIRECT 0.3 mg/dL (0.0-0.4); BILIRUBIN,TOTAL 0.3 mg/dL (0.2-1.3); BLOOD UREA NITROGEN 12 mg/dL (7-20); CARBON DIOXIDE 31 mmol/L (22-30); CHLORIDE 100 mmol/L (98-107); GLUCOSE 133 mg/dL (75-110); POTASSIUM 4.4 mmol/L (3.6-5.0); SODIUM 140.7 mmol/L (137-145)
[2017-11-16 14:46] LABS: APPEARANCE,URINE SLIGHTLY-CLOUDY; BILIRUBIN,URINE NEGATIVE (NEGATIVE); COLOR,URINE YELLOW; GLUCOSE, URINE NEGATIVE (NEGATIVE); KETONES,URINE NEGATIVE (NEGATIVE); LEUKOCYTE ESTERASE,URINE NEGATIVE (NEGATIVE); NITRITE,URINE NEGATIVE (NEGATIVE); PROTEIN,URINE 30 mg/dL (NEGATIVE); UROBILINOGEN,URINE NEGATIVE mg/dL (<2.0)
--- NOTE | 2017-11-16 15:36 | RADIOLOGY REPORT (SQ) ---
EXAM DESCRIPTION: U/S OB TRANSVAGINAL W/O DOP COMPLETED DATE/TIME: 11/16/2017 3:18 pm REASON FOR STUDY: RLQ tenderness, prior ectopic, COMPARISON: None. TECHNIQUE: Transvaginal static and realtime grayscale images acquired of the pelvis. Additional wanda cted spectral and color Doppler images recorded. All images stored on PACs. bHC.8 LIMITATIONS: None. FINDINGS: UTERUS: No masses. No anomalies. GESTATIONAL SAC: Not visualized YOLK SAC: Not visualized POLE: Not visualized RIGHT ADNEXA: Normal ovary with normal vascular flow. No adnexal free fluid. Right ovarian cyst is identified measuring 1.9 x 1.2 x 1.5 cm LEFT ADNEXA: Left ovary was not visualized. No adnexal free fluid. No adnexal masses. FREE FLUID: None. OTHER: No other significant finding. IMPRESSION: No IUP is identified. BHCG LEVEL APPROPRIATE FOR ENDOMETRIAL FINDINGS. CONSIDER F/U BHCG AND/OR ULTRASOUND FOR identification of a living intrauterine gestation AND TO EXCL UDE ECTOPIC . Trimester of : First - 0 to 13 weeks. TECHNICAL DOCUMENTATION: JOB ID: [id number] [employer]- All Rights Reserved Reading location - IP/workstation name: [email or web address]
[2017-11-16] MEDS ORDERED: HYDROCODONE/ACETAMINOPHEN 5-325 MG TABLET PO ONE (16:48)
--- NOTE | 2017-11-16 16:51 | ER Document Report ---
ED General - General Chief Complaint: Abdominal Pain Stated Complaint: LOWER ABDOMINAL PAIN Time Seen by Provider: 11/16/17 13:32 TRAVEL OUTSIDE OF THE [place] IN LAST 30 DAYS: No - HPI Patient complains to provider of: Right lower quadrant abdominal pain Notes: Patient coming in for evaluation right lower quadrant abdominal pain. Patient was previously seen in the ER diagnosed with patient stated increased pain after she went back to work last few days. Patient states she has not followed up with MAINTENANCE SERVICE DISPATCHER as directed. Patient states has a history of ectopic however she is unaware she had her tubes removed or ovaries removed. Patient states she is also unaware of what side of the ectopic was on. Patient states she is a G2 12 P7 with 1 ectopic and multiple other miscarriages. Patient otherwise denies any fever chills nausea vomiting diarrhea denies taking medication for the pain at home - Related Data Allergies/Adverse Reactions: Penicillins Allergy (Verified 11/16/17 13:30) Sulfa (Sulfonamide Antibiotics) Allergy (Verified 11/16/17 13:30) Past Medical History - Social History Smoking Status: Current Every Day Smoker Chew tobacco use (# tins/day): No Frequency of alcohol use: Rare Drug Abuse: None Family History: Reviewed & Not Pertinent Patient has suicidal ideation: No Patient has homicidal ideation: No Pulmonary Medical History: Reports: Hx Asthma, Hx Pneumonia Neurological Medical History: Reports: Hx Migraine Renal/ Medical History: Denies: Hx Peritoneal Dialysis Past Surgical History: Reports: Hx Gynecologic Surgery - fallopian tube/ovary removed Review of Systems - Review of Systems Constitutional: No symptoms reported EENT: No symptoms reported Cardiovascular: No symptoms reported Respiratory: No symptoms reported Gastrointestinal: Abdominal pain Genitourinary: No symptoms reported Female Genitourinary: No symptoms reported Musculoskeletal: No symptoms reported Skin: No symptoms reported Hematologic/Lymphatic: No symptoms reported Neurological/Psychological: No symptoms reported -: Yes All other systems reviewed and negative Physical Exam - Vital signs Vitals: Temp Pulse Resp BP Pulse Ox 98.1 F 81 20 137/98 H 98 11/16/17 13:13 11/16/17 13:13 11/16/17 13:13 11/16/17 13:13 11/16/17 13:13 Interpretation: Normal - General General appearance: Appears well, Alert - HEENT Head: Normocephalic, Atraumatic Eyes: Normal Pupils: PERRL - Respiratory Respiratory status: No respiratory distress Chest status: Nontender Breath sounds: Normal Chest palpation: Normal - Cardiovascular Rhythm: Regular Heart sounds: Normal auscultation Murmur: No - Abdominal Inspection: Normal Distension: No distension Bowel sounds: Normal Tenderness: Tender - Mild tenderness right lower quadrant right lower pelvic region Organomegaly: No organomegaly - Back Back: Normal, Nontender - Extremities General upper extremity: Normal inspection, Nontender, Normal color, Normal ROM , Normal temperature General lower extremity: Normal inspection, Nontender, Normal color, Normal ROM , Normal temperature, Normal weight bearing. No: Mariama's sign - Neurological Neuro grossly intact: Yes Cognition: Normal Orientation: AAOx4 [place] Coma Scale Eye Opening: Spontaneous Jacky Coma Scale Verbal: Oriented Jacky Coma Scale Motor: Obeys Commands Jacky Coma Scale Total: 15 Speech: Normal Motor strength normal: LUE, RUE, LLE, RLE Sensory: Normal - Psychological Associated symptoms: Normal affect, Normal mood - Skin Skin Temperature: Warm Skin Moisture: Dry Skin Color: Normal Course - Re-evaluation Re-evalutation: 11/16/17 22:50 Patient's beta-hCG has not increased appropriately concerned about ectopic . Ultrasound does show a ovarian cyst on the right ovary. Did discuss findings with the MAINTENANCE SERVICE DISPATCHER on-call Dr. Cotto at this time thinks less likely ectopic possibly more endometrial CA that the patient's bili levels are abnormal. Patient otherwise is stable recommend that the patient follow-up in her clinic in the next 24-48 hours. Patient was given pain medication for home agrees with treatment plan at this time. Patient was also given ectopic instructions. - Vital Signs Vital signs: Temp Pulse Resp BP Pulse Ox 98.1 F 74 18 135/88 H 99 11/16/17 13:13 11/16/17 17:00 11/16/17 17:00 11/16/17 17:00 11/16/17 17:00 - Laboratory Result Diagrams: 11/16/17 13:50 11/16/17 13:50 Laboratory results interpreted by me: 11/16/17 11/16/17 11/16/17 13:50 13:50 13:50 Hct 35.6 L MCV 76 L MCH 26.1 L RDW 14.9 H Carbon Dioxide 31 H Glucose 133 H AST 12 L Beta HCG, Quant 24.86 H Urine Protein 30 H Discharge - Discharge Clinical Impression: Pain in the right adnexa, Right ovarian cyst Qualifiers: Weeks of gestation: less than 8 weeks Qualified Code(s): Z3A.01 - Less than 8 weeks gestation of Disposition: HOME, SELF-CARE Instructions: Abdominal Pain ([facility]), Ectopic Precaution ([facility]) Additional Instructions: Your evaluation today is concerning for possible development of an ectopic . I did discuss her case with the MAINTENANCE SERVICE DISPATCHER on-call [facility]. At this time we will give you medication to help out with any pain that you are having the highly recommend she follow-up in the clinic either tomorrow or by Tuesday for further evaluation. Please review discharge instructions carefully. Please take medication as prescribed. Return to ER symptoms worsen. Prescriptions: Hydrocodone/Acetaminophen [[place] 5-325 Tablet] 1 - 2 tab PO ASDIR PRN #10 tab PRN Reason: Ibuprofen [Motrin 600 Mg Tablet] 600 mg PO TID #30 tablet Forms: Parent Work Note Referrals: CARL WHITMAN MD [Primary Care Provider] - Follow up as needed MANDA COTTO MD [ACTIVE STAFF] - Follow up tomorrow
[2017-11-16 17:01] VITALS: BP 135/88
== END 2017-11-16 16:59 | disposition home or self-care (01) ==
LOC: ER 12:55
DX: O34.81 Maternal care for other abnormalities of pelvic organs, first trimester (principal); N83.201 Unspecified ovarian cyst, right side; R10.31 Right lower quadrant pain; O99.331 Smoking (tobacco) complicating pregnancy, first trimester; Z3A.01 Less than 8 weeks gestation of pregnancy; Z88.0 Allergy status to penicillin; Z88.2 Allergy status to sulfonamides
CPT/HCPCS: 36415; 76817; 80053; 81001; 84702; 85025; 99284

== ENCOUNTER 2017-11-19 18:21 | Emergency (ER) | payer MEDICAID ==
[2017-11-19 18:34] VITALS: BP 142/100
[2017-11-19 19:02] LABS: HEMATOCRIT 36.2 % (36.0-47.0); HEMOGLOBIN 12.2 g/dL (12.0-15.5); MEAN CORPUSCULAR HEMOGLOBIN 25.9 pg (27.0-33.4); MEAN CORPUSCULAR HGB CONC 33.7 g/dL (32.0-36.0); MEAN CORPUSCULAR VOLUME 77 fl (80-97); PLATELET COUNT 193 10^3/uL (150-450); RED BLOOD COUNT 4.72 10^6/uL (3.72-5.28); RED CELL DISTRIBUTION WIDTH 15.4 % (11.5-14.0); WHITE BLOOD COUNT 6.8 10^3/uL (4.0-10.5)
[2017-11-19 19:58] LABS: ANION GAP 11 (5-19); BLOOD UREA NITROGEN 12 mg/dL (7-20); CALCIUM 8.6 mg/dL (8.4-10.2); CARBON DIOXIDE 27 mmol/L (22-30); CHLORIDE 105 mmol/L (98-107); GLUCOSE 91 mg/dL (75-110); POTASSIUM 4.3 mmol/L (3.6-5.0); SODIUM 142.8 mmol/L (137-145)
[2017-11-19 20:52] LABS: APPEARANCE,URINE CLOUDY; BILIRUBIN,URINE NEGATIVE (NEGATIVE); GLUCOSE, URINE NEGATIVE (NEGATIVE); KETONES,URINE NEGATIVE (NEGATIVE); LEUKOCYTE ESTERASE,URINE NEGATIVE (NEGATIVE); NITRITE,URINE NEGATIVE (NEGATIVE); PROTEIN,URINE 100 mg/dL (NEGATIVE); URINE SPECIFIC GRAVITY 1.028; UROBILINOGEN,URINE NEGATIVE mg/dL (<2.0)
[2017-11-19] MEDS ORDERED: KETOROLAC TROMETHAMINE INJ/PF 30 MG/1 ML SDV IV ONE (20:55)
[2017-11-19] MEDS ORDERED: MORPHINE SULFATE 10 MG/ML INJ IV PRN (20:55)
[2017-11-19 20:56] LABS: COLOR,URINE YELLOW
[2017-11-19] MEDS ORDERED: NORMAL SALINE 1000 ML 1,000 ML IV ONE (20:59)
[2017-11-19] MEDS ORDERED: METOCLOPRAMIDE HCL INJ/PF 10 MG/2 ML SDV IV ONE (20:59)
--- NOTE | 2017-11-19 20:59 | ER Document Report ---
ED General - General Chief Complaint: Abdominal Pain Stated Complaint: LOWER ABDOMINAL PAIN Time Seen by Provider: 11/19/17 18:35 Notes: Patient is a 37-year-old female with a positive test at home who presents with approximately 1 week of ongoing right lower abdominal pain. She describes this as an intermittent, stabbing, moderate to severe pain that became constant approximately 1 hour prior to arrival. She states that usually the pain goes away. Nothing seemed to trigger the pain. She has not tried to relieve the pain. She denies associated nausea, vomiting, fever, but does note that she recently started having vaginal bleeding approximately 30 minutes to 1 hour ago. She has not yet followed up with [facility] [employer] [facility] regarding this concern. She does have a history of ectopic in the past. TRAVEL OUTSIDE OF THE [place] IN LAST 30 DAYS: No - Related Data Allergies/Adverse Reactions: Penicillins Allergy (Verified 11/16/17 13:30) Sulfa (Sulfonamide Antibiotics) Allergy (Verified 11/16/17 13:30) Past Medical History - General Information source: Patient - Social History Smoking Status: Former Smoker Chew tobacco use (# tins/day): No Drug Abuse: None Lives with: Spouse/Significant other Family History: Reviewed & Not Pertinent Patient has suicidal ideation: No Patient has homicidal ideation: No Pulmonary Medical History: Reports: Hx Asthma, Hx Pneumonia Neurological Medical History: Reports: Hx Migraine Renal/ Medical History: Denies: Hx Peritoneal Dialysis Past Surgical History: Reports: Hx Gynecologic Surgery - fallopian tube/ovary removed Review of Systems - Review of Systems Notes: Constitutional: Negative for fever. HENT: Negative for sore throat. Eyes: Negative for visual changes. Cardiovascular: Negative for chest pain. Respiratory: Negative for shortness of breath. Gastrointestinal: Positive for abdominal pain Genitourinary: Positive for vaginal bleeding Musculoskeletal: Negative for back pain. Skin: Negative for rash. Neurological: Negative for headaches, weakness or numbness. 10 point ROS negative except as marked above and in HPI. Physical Exam - Vital signs Vitals: Temp Pulse Resp BP Pulse Ox 98 F 83 18 142/100 H 97 11/19/17 18:33 11/19/17 18:33 11/19/17 18:33 11/19/17 18:33 11/19/17 18:33 Interpretation: Hypertensive Notes: PHYSICAL EXAMINATION: GENERAL: Appears uncomfortable but in no acute distress HEAD: Atraumatic, normocephalic. EYES: Pupils equal round and reactive to light, extraocular movements intact, sclera anicteric, conjunctiva are normal. ENT: nares patent, oropharynx clear without exudates. Moist mucous membranes. NECK: Normal range of motion, supple without lymphadenopathy LUNGS: Breath sounds clear to auscultation bilaterally and equal. No wheezes rales or rhonchi. HEART: Regular rate and rhythm without murmurs ABDOMEN: Soft, focal tenderness to the right lower quadrant and right adnexa but no other localized areas of tenderness, normoactive bowel sounds. No guarding, no rebound. No masses appreciated. EXTREMITIES: Normal range of motion, no pitting or edema. No cyanosis. NEUROLOGICAL: No focal neurological deficits. Moves all extremities spontaneously and on command. PSYCH: Normal mood, normal affect. SKIN: Warm, Dry, normal turgor, no rashes or lesions noted. Course - Re-evaluation Re-evalutation: 11/19/17 20:57 Patient presents with progressively worsening right lower quadrant abdominal pain in the setting of a abnormal . Quantitative beta-hCG has down trended from 24-23 today confirming that this is not a normal but also is not suggestive of an ectopic . Patient has begun to have vaginal bleeding today but states this does not feel a prior miscarriages. On exam she does have severe tenderness on palpation of the right lower quadrant with some voluntary guarding. At this point, I am worried about the possibility of an alternative pathology such as an acute appendicitis, possible ruptured ovarian cyst, lips likely a tubo-ovarian abscess. Transvaginal ultrasound completed yesterday did not show any acute pathology. Given her degree of pain and exam will proceed with CT abdomen pelvis as patient does not have a viable and my main concern is for possible surgical pathology given her degree of pain and clinical history. Patient is in agreement. 11/19/17 22:35 CT them and pelvis unremarkable. Patient's pain has improved. I have emphasized with her that she needs to follow-up with [facility] at her earliest ability as originally recommended by the primary doctor. Vitals remain within normal limits. At this time will discharge with return precautions and follow- up recommendations. Verbal discharge instructions given a the bedside and opportunity for questions given. Medication warnings reviewed. Patient is in agreement with this plan and has verbalized understanding of return precautions and the need for primary care follow-up in the next 24-72 hours. - Vital Signs Vital signs: Temp Pulse Resp BP Pulse Ox 98 F 83 18 142/100 H 97 11/19/17 18:33 11/19/17 18:33 11/19/17 18:33 11/19/17 18:33 11/19/17 18:33 - Laboratory Result Diagrams: 11/19/17 18:28 11/19/17 19:35 Laboratory results interpreted by me: 11/19/17 11/19/17 11/19/17 18:28 19:35 20:26 MCV 77 L MCH 25.9 L RDW 15.4 H Beta HCG, Quant 23.50 H Urine Protein 100 H Urine Blood LARGE H Urine Ascorbic Acid 40 H - Diagnostic Test Radiology reviewed: Reports reviewed Discharge - Discharge Clinical Impression: Right lower quadrant abdominal pain Abnormal Qualifiers: Trimester: first trimester Qualified Code(s): O26.91 - related conditions, unspecified, first trimester Condition: Good Disposition: HOME, SELF-CARE Additional Instructions: You need to follow-up with your [facility] [employer] [facility] regarding today's visit. Your hormone is downtrending which suggest that this is an abnormal and will not develop into a baby. The CT scan today does not show any clear cause of your right lower abdominal pain but it may be related to an ongoing miscarriage. Please return if you bleed through more than 2 pads per hour for more than 2 hours, have worsening pain, develop a fever greater than 100.4F, have persistent vomiting, or have any other symptoms that are worrisome to you. Forms: Return to Work Referrals: CARL WHITMAN MD [Primary Care Provider] - Follow up as needed
--- NOTE | 2017-11-19 22:13 | RADIOLOGY REPORT (SQ) ---
EXAM DESCRIPTION: CT ABD/PELVIS WITH IV ONLY COMPLETED DATE/TIME: 11/19/2017 9:47 pm REASON FOR STUDY: severe rlq pain, COMPARISON: None. TECHNIQUE: CT scan of the abdomen and pelvis performed using helical scanning technique with dynamic intravenous contrast injection. No oral contrast. Images reviewed with lung, soft tissue, and bone windows. Reconstructed coronal and sagittal MPR images reviewed. Delayed images for evaluation of the urinary system also acquired. All images stored on PACS. All CT scanners at this facility use dose modulation, iterative reconstruction, and/or weight based d osing when appropriate to reduce radiation dose to as low as reasonably achievable (ALARA). [facility]: Dose Right [facility]: CareDose [facility]: Dose Right [facility]: Teradose 4D [facility]: PxRadia CONTRAST TYPE AND DOSE: contrast/concentration: Isovue 370.00 mg/ml; Total Contrast Delivered: 80.0 ml; Total Saline Delivered: 40.0 ml RENAL FUNCTION: BUN 12; creatinine 0.69 RADIATION DOSE: CT Rad equipment meets quality standard of care and radiation dose reduction techniq ues were employed. CTDIvol: 20.3 - 21.0 mGy. DLP: 2061 mGy-cm.. LIMITATIONS: None. FINDINGS: LOWER CHEST: No significant findings. No nodules or infiltrates. LIVER: Normal size. No masses. No dilated ducts. Incidental note is made of normal variant Juan Alberto's lobe morphology. SPLEEN: Normal size. No focal lesions. PANCREAS: No masses. No significant calcifications. No adjacent inflammation or peripancreatic fluid collections. Pancreatic duct not dilated. GALLBLADDER: No identified stones by CT criteria. No inflammatory changes to suggest cholecystitis. ADRENAL GLANDS: No significant masses or asymmetry. RIGHT KIDNEY AND URETER: No solid masses. Incidental note is made of a prominent column of Igor. No significant calcifications. No hydronephrosis or hydroureter. LEFT KIDNEY AND URETER: No solid masses. No significant calcifications. No hydronephrosis or hydr oureter. AORTA AND VESSELS: No aneurysm. No dissection. Renal arteries, SMA, celiac without stenosis. RETROPERITONEUM: No retroperitoneal adenopathy, hemorrhage or masses. BOWEL AND PERITONEAL CAVITY: No masses or inflammatory changes. No free fluid or peritoneal masses. APPENDIX: Well-visualized, demonstrating normal caliber and intraluminal air. PELVIS: No mass. No free fluid. Normal bladder. The uterus appears normal for modality/technique. ABDOMINAL WALL: No masses. No hernias. BONES: Incidental note is made of bilateral, symmetric sclerosis along the iliac aspect of the bilate ral sacroiliac joints, with few tiny subcortical cysts suggesting degenerative changes. OTHER: No other significant finding. IMPRESSION: NORMAL APPEARANCE OF THE APPENDIX ; NO FINDINGS TO CORRELATE TO THE PATIENT'S REPORTED R IGHT LOWER QUADRANT PAIN. TECHNICAL DOCUMENTATION: JOB ID: [id number] Quality ID # [id number]: Final reports with documentation of one or more dose reduction techniques (e.g., Au tomated exposure control, adjustment of the mA and/or kV according to patient size, use of iterative reconstruction technique) 2010 [employer]- All Rights Reserved Reading location - IP/workstation name: [email or web address]
== END 2017-11-19 23:10 | disposition home or self-care (01) ==
LOC: ER 18:21
DX: O26.891 Other specified pregnancy related conditions, first trimester (principal); R10.31 Right lower quadrant pain; O20.9 Hemorrhage in early pregnancy, unspecified; O99.511 Diseases of the respiratory system complicating pregnancy, first trimester; Z3A.00 Weeks of gestation of pregnancy not specified; J45.909 Unspecified asthma, uncomplicated; Z88.0 Allergy status to penicillin; Z88.2 Allergy status to sulfonamides; Z87.891 Personal history of nicotine dependence; Z87.59 Personal history of other complications of pregnancy, childbirth and the puerperium
CPT/HCPCS: 99284; 96361; 96374; 96375; 36415; 84702; 85027; 80048; 81001; 74177; J1885; J2765; J2270; J7030

== ENCOUNTER 2017-11-30 20:19 | Emergency (ER) | payer MEDICAID ==
[2017-11-30] MEDS ORDERED: NORMAL SALINE 1000 ML 1,000 ML IV ONE (20:32)
[2017-11-30] MEDS ORDERED: ONDANSETRON HCL INJ/PF 4 MG/2 ML SDV IV ONE (20:33)
[2017-11-30] MEDS ORDERED: MORPHINE SULFATE 10 MG/ML INJ IV ONE (20:34)
--- NOTE | 2017-11-30 20:35 | ER Document Report ---
ED Medical Screen (RME) - General Chief Complaint: Vaginal Bleeding Stated Complaint: POSSIBLE MISCARRIAGE Time Seen by Provider: 11/30/17 20:26 Notes: 37 years old female with a history of being early , was told to last 14 that she is losing her baby. 2 days ago she started having cramps couple of bleeding from vagina. Today started to bleed more heavily, changed 4 pads, and severe lower abdominal cramps. Therefore present to the ED. She has been 13 times, has 7 like . Denies any dysuria fever chills or other constitutional symptoms TRAVEL OUTSIDE OF THE [place] IN LAST 30 DAYS: No - Related Data Allergies/Adverse Reactions: Penicillins Allergy (Verified 11/16/17 13:30) Sulfa (Sulfonamide Antibiotics) Allergy (Verified 11/16/17 13:30) Past Medical History - General Last Menstrual Period: 11/01/17 - Social History Chew tobacco use (# tins/day): No Frequency of alcohol use: Occasional Drug Abuse: None Pulmonary Medical History: Reports: Hx Asthma, Hx Pneumonia Neurological Medical History: Reports: Hx Migraine Renal/ Medical History: Denies: Hx Peritoneal Dialysis Past Surgical History: Reports: Hx Gynecologic Surgery - fallopian tube/ovary removed Physical Exam - Vital signs Vitals: Temp Pulse Resp BP Pulse Ox 99 F 81 18 147/97 H 97 11/30/17 20:20 11/30/17 20:20 11/30/17 20:20 11/30/17 20:20 11/30/17 20:20 Course - Vital Signs Vital signs: Temp Pulse Resp BP Pulse Ox 99 F 81 18 147/97 H 97 11/30/17 20:20 11/30/17 20:20 11/30/17 20:20 11/30/17 20:20 11/30/17 20:20 Doctor's Discharge - Discharge Referrals: CARL WHITMAN MD [Primary Care Provider] - Follow up as needed
[2017-11-30 21:01] LABS: ABSOLUTE BASOPHILS # (AUTO) 0.1 10^3/uL (0.0-0.2); ABSOLUTE EOSINOPHILS # (AUTO) 0.2 10^3/uL (0.0-0.6); ABSOLUTE LYMPHOCYTES (AUTO) 2.9 10^3/uL (0.5-4.7); ABSOLUTE MONOCYTES (AUTO) 0.7 10^3/uL (0.1-1.4); ABSOLUTE NEUT (AUTO) 4.2 10^3/uL (1.7-8.2); BASOPHILS % (AUTO) 0.8 % (0-2); EOSINOPHILS % (AUTO) 2.1 % (0-6); HEMATOCRIT 35.4 % (36.0-47.0); HEMOGLOBIN 11.9 g/dL (12.0-15.5); MEAN CORPUSCULAR HEMOGLOBIN 26.1 pg (27.0-33.4); MEAN CORPUSCULAR HGB CONC 33.8 g/dL (32.0-36.0); MEAN CORPUSCULAR VOLUME 77 fl (80-97); MONOCYTES % (AUTO) 8.8 % (3-13); PLATELET COUNT 214 10^3/uL (150-450); RED BLOOD COUNT 4.58 10^6/uL (3.72-5.28); RED CELL DISTRIBUTION WIDTH 15.9 % (11.5-14.0); SEGMENTED NEUTROPHILS % (AUTO) 52.3 % (42-78); TOTAL CELLS COUNTED % (AUTO) 100 %
[2017-11-30] MEDS: NORMAL SALINE 1000 ML 1,000 ML IV PRN ×2 (21:01→23:08)
[2017-11-30 21:21] LABS: ALANINE AMINOTRANSFERASE 30 U/L (9-52); ALBUMIN 3.9 g/dL (3.5-5.0); ALKALINE PHOSPHATASE 95 U/L (38-126); ANION GAP 11 (5-19); ASPARTATE AMINO TRANSFERASE 25 U/L (14-36); BILIRUBIN,DIRECT 0.3 mg/dL (0.0-0.4); BILIRUBIN,TOTAL 0.4 mg/dL (0.2-1.3); BLOOD UREA NITROGEN 13 mg/dL (7-20); CALCIUM 8.4 mg/dL (8.4-10.2); CARBON DIOXIDE 26 mmol/L (22-30); CHLORIDE 103 mmol/L (98-107); GLUCOSE 88 mg/dL (75-110); POTASSIUM 3.5 mmol/L (3.6-5.0)
--- NOTE | 2017-11-30 21:33 | ER Document Report ---
ED General - General Chief Complaint: Vaginal Bleeding Stated Complaint: POSSIBLE MISCARRIAGE Time Seen by Provider: 11/30/17 20:26 Mode of Arrival: Ambulatory Information source: Patient Notes: This is a 37-year-old female with a history of ectopic in the past presents to the emergency room with vaginal bleeding for 2 days in the setting of early . Patient states that the bleeding got worse today. She does report cramping and abdominal discomfort. Patient had a pelvic ultrasound and was told that she may have a miscarriage. She states that this was approximately a week ago but did not have any bleeding at that time. She states that she just started bleeding yesterday and now is having a lot of cramping pain. She does states she has passed tissue. TRAVEL OUTSIDE OF THE [place] IN LAST 30 DAYS: No - HPI Onset: Last week Onset/Duration: Gradual Quality of pain: Dull Severity: Moderate Pain Level: 3 Associated symptoms: denies: Chest pain, Shortness of breath Exacerbated by: Movement Relieved by: Denies Similar symptoms previously: Yes Recently seen / treated by doctor: Yes - Related Data Allergies/Adverse Reactions: Penicillins Allergy (Verified 11/16/17 13:30) Sulfa (Sulfonamide Antibiotics) Allergy (Verified 11/16/17 13:30) Past Medical History - General Information source: Patient Last Menstrual Period: 11/01/17 - Social History Smoking Status: Current Every Day Smoker Cigarette use (# per day): Yes - Half pack per day smoking Chew tobacco use (# tins/day): No Frequency of alcohol use: Occasional Drug Abuse: None Lives with: Family Family History: Reviewed & Not Pertinent Patient has suicidal ideation: No Patient has homicidal ideation: No Pulmonary Medical History: Reports: Hx Asthma, Hx Pneumonia Neurological Medical History: Reports: Hx Migraine Renal/ Medical History: Denies: Hx Peritoneal Dialysis Past Surgical History: Reports: Hx Gynecologic Surgery - fallopian tube/ovary removed Review of Systems - Review of Systems Constitutional: denies: Chills, Fever EENT: No symptoms reported Cardiovascular: No symptoms reported Respiratory: No symptoms reported Gastrointestinal: See HPI Genitourinary: See HPI Female Genitourinary: See HPI Musculoskeletal: No symptoms reported Skin: No symptoms reported Hematologic/Lymphatic: No symptoms reported Neurological/Psychological: No symptoms reported Physical Exam - Vital signs Vitals: Temp Pulse Resp BP Pulse Ox 99 F 81 18 147/97 H 97 07/25/18 20:20 11/30/17 20:20 11/30/17 20:20 11/30/17 20:20 11/30/17 20:20 Notes: Physical exam: GENERAL: 37-year-old female, alert and oriented 3, tearful HEAD: Atraumatic, normocephalic. EYES: Pupils equal round and reactive to light, extraocular movements intact, sclera anicteric, conjunctiva are normal. ENT: TMs normal, nares patent, oropharynx clear without exudates. Moist mucous membranes. NECK: Normal range of motion, supple without obvious mass or JVD. LUNGS: Breath sounds clear to auscultation bilaterally and equal. No wheezes rales or rhonchi. HEART: Regular rate and rhythm without murmurs, rubs or gallops. ABDOMEN: Soft, normoactive bowel sounds. Patient does have tenderness in the right lower quadrant without rebound or guarding. No masses appreciated. Vaginal: Patient does have blood in the vault. There is no obvious tissue. She does have tenderness to palpation over the uterus. EXTREMITIES: Normal range of motion, no pitting or edema. No clubbing or cyanosis. NEUROLOGICAL: Cranial nerves II through XII grossly intact. Normal speech, moving all extremities. PSYCH: Normal mood, normal affect. SKIN: Warm, Dry, normal turgor, no rashes or lesions noted. Course - Vital Signs Vital signs: Temp Pulse Resp BP Pulse Ox 97.7 F 81 14 130/82 H 99 11/30/17 23:20 11/30/17 20:20 12/01/17 02:01 12/01/17 02:01 12/01/17 02:01 - Laboratory Result Diagrams: 11/30/17 20:40 11/30/17 20:40 Laboratory results interpreted by me: 11/30/17 11/30/17 11/30/17 20:40 20:40 20:40 Hgb 11.9 L Hct 35.4 L MCV 77 L MCH 26.1 L RDW 15.9 H Potassium 3.5 L Beta HCG, Quant 12.21 H Urine Protein Urine Blood 11/30/17 22:27 Hgb Hct MCV MCH RDW Potassium Beta HCG, Quant Urine Protein 30 H Urine Blood LARGE H - Diagnostic Test Radiology reviewed: Image reviewed, Reports reviewed - Transvaginal ultrasound showed no evidence of IUP. Beta quant is very low (12). CT of the abdomen shows no intra-abdominal inflammation, appendix normal. Discharge - Discharge Clinical Impression: Vaginal bleeding/miscarriage Condition: Stable Disposition: HOME, SELF-CARE Additional Instructions: Recommendations: Rest, drink plenty of fluids, IbuProfen for pain is good. Take Percocet for pain not relieved by the ibuprofen Return to the emergency room for worsening bleeding, worsening pain or any concerns or getting worse. Follow-up with the woman's health clinic: Call first thing in the morning. The pain medicine you're taking prescribed as a narcotic. There are several important things you should know about this medicine: 1. This medicine contains Tylenol: It is important that you do not take Tylenol (or acetaminophen) while on this medicine. Tylenol is metabolized by the liver and taking too much Tylenol (acetaminophen) can lay to liver damage and even liver failure. 2. Taking narcotics for too long can lead to physical and mental dependence. Take this medicine only if really needed and in the lowest quantity to achieve pain relief. 3. Do not drink alcohol while on this medicine. Alcohol interacts with narcotics and the combination can be dangerous. 4. Do not drive or operate machinery while on this medicine. 5. Narcotics do cause constipation, so drink plenty of fluids and daily stool softeners. Prescriptions: Oxycodone HCl/Acetaminophen [Percocet 5-325 mg Tablet] 1 - 2 tab PO ASDIR PRN # 25 tablet PRN Reason: Referrals: CARL WHITMAN MD [Primary Care Provider] - Follow up as needed ALENA GALEANO MD [ACTIVE STAFF] - 12/01/17 (This is the number for the woman's health clinic: Call first thing in the morning the next available appointment)
--- NOTE | 2017-11-30 22:14 | RADIOLOGY REPORT (SQ) ---
EXAM DESCRIPTION: U/S OB TRANSVAG W/DOPPLER COMPLETED DATE/TIME: 11/30/2017 9:57 pm REASON FOR STUDY: Abdominal pain/ COMPARISON: None. TECHNIQUE: Dynamic and static grayscale images acquired of the pelvis via transvaginal approach and recorded on PACS. Additional selected color Doppler and spectral images recorded. LIMITATIONS: Bowel gas. FINDINGS: UTERUS: Contour normal. No mass. No evidence of intrauterine gestation. ENDOMETRIAL STRIPE: No focal or generalized thickening. No masses. CERVIX: Unremarkable RIGHT OVARY AND DOPPLER: Ovary not visualized. LEFT OVARY AND DOPPLER: Ovary not visualized. FREE FLUID: Trivial free fluid noted in the posterior cul-de-sac OTHER: No other significant finding. MEASUREMENTS: UTERUS: 9.7 x 5.3 x 5.3 semi ENDOMETRIAL STRIPE: 6 mm RIGHT OVARY: Not visualized LEFT OVARY: Not visualized Beta HCG: Pending IMPRESSION: No sonographic evidence of an intrauterine gestation. Recommend correlation with HCG le vels. Trivial free fluid noted in the posterior cul-de-sac. Ovaries not visualized secondary to bow el gas. TECHNICAL DOCUMENTATION: JOB ID: [id number] [employer]- All Rights Reserved Rev-09/23 Reading location - IP/workstation name: [email or web address]
[2017-11-30 23:14] LABS: APPEARANCE,URINE SLIGHTLY-CLOUDY; BILIRUBIN,URINE NEGATIVE (NEGATIVE); COLOR,URINE YELLOW; GLUCOSE, URINE NEGATIVE (NEGATIVE); KETONES,URINE NEGATIVE (NEGATIVE); LEUKOCYTE ESTERASE,URINE NEGATIVE (NEGATIVE); NITRITE,URINE NEGATIVE (NEGATIVE); PROTEIN,URINE 30 mg/dL (NEGATIVE); URINE SPECIFIC GRAVITY 1.021; UROBILINOGEN,URINE NEGATIVE mg/dL (<2.0)
[2017-12-01] MEDS ORDERED: MORPHINE SULFATE 10 MG/ML INJ IV ONE (00:38)
--- NOTE | 2017-12-01 01:37 | RADIOLOGY REPORT (SQ) ---
EXAM DESCRIPTION: CT ABDOMEN PELVIS WITH IV CONTRAST COMPLETED DATE/TME: 12/01/2017 00:03 CLINICAL HISTORY: abd pain-rlq, miscarrying COMPARISON: 11/19/2017 TECHNIQUE: CT of the abdomen and pelvis performed following IV administration of 100 mL of Isovue-370. DLP: 1922.95 mGycm FINDINGS: Lung Bases: The visualized lung bases are clear. Bones: No destructive bone lesions identified. Abdomen: Liver: The liver has normal size and density. No intrahepatic mass or biliary dilatation. Gallbladder: No calcified gallstones. Spleen, Pancreas, and Adrenal Glands: The spleen, pancreas, and adrenal glands are unremarkable. Kidneys: The kidneys have normal size and contour without evidence of solid mass or hydronephrosis. Vasculature: The aorta and IVC have normal caliber and position. The portal vein is patent. The proximal visceral and renal arteries are patent. Stomach: The stomach and duodenum have normal course. Other: No free intraperitoneal air. No free fluid or lymphadenopathy. Pelvis: Bladder: Urinary bladder is unremarkable. Bowel: No dilated loops of large or small bowel. Appendix: Normal appendix. Pelvis: Uterus is not enlarged. IMPRESSION: 1. No acute inflammatory or obstructive process identified. Normal appendix. This exam was performed according to our departmental dose-optimization program, which includes automated exposure control, adjustment of the mA and/or kV according to patient size and/or use of iterative reconstruction technique.
[2017-12-01 03:09] VITALS: BP 129/90
== END 2017-12-01 03:15 | disposition home or self-care (01) ==
LOC: ER 20:19
DX: O03.9 Complete or unspecified spontaneous abortion without complication (principal); F17.210 Nicotine dependence, cigarettes, uncomplicated; J45.909 Unspecified asthma, uncomplicated; R10.9 Unspecified abdominal pain; R10.813 Right lower quadrant abdominal tenderness; Z88.0 Allergy status to penicillin; Z88.2 Allergy status to sulfonamides; Z87.59 Personal history of other complications of pregnancy, childbirth and the puerperium
CPT/HCPCS: 96376; 99285; 96361; 96374; 96375; 86900; 86901; 36415; 86850; 84702; 85025; 80053; 81001; 76817; 93976; 74177; J2270 ×2; J2405; J7030

== ENCOUNTER 2017-12-12 08:22 | Emergency (ER) | payer MEDICAID ==
[2017-12-12] MEDS ORDERED: KETOROLAC TROMETHAMINE INJ/PF 30 MG/1 ML SDV IV ONE (09:12)
[2017-12-12] MEDS ORDERED: DIPHENHYDRAMINE HCL 50 MG/ML VIAL IV ONE (09:12)
[2017-12-12] MEDS ORDERED: PROCHLORPERAZINE EDISYLATE INJ 10 MG/2 ML VIAL IV ONE (09:12)
[2017-12-12] MEDS ORDERED: FENTANYL CITRATE INJ/PF 100 MCG/2 ML AMPUL IV ONE ×2 (09:12→14:48)
[2017-12-12] MEDS ORDERED: NORMAL SALINE 1000 ML 1,000 ML IV ONE (09:13)
[2017-12-12] MEDS ORDERED: CLONIDINE HCL 0.2 MG TABLET PO ONE (09:17)
--- NOTE | 2017-12-12 09:17 | ER Document Report ---
ED Headache - General Chief Complaint: Headache Stated Complaint: HEADACHE Time Seen by Provider: 12/12/17 09:12 Notes: Chief complaint: Headache History of complain:( obtained from----patient) 37 years old female presents today with right-sided temporoparietal headache and right upper molar tooth pain. Has a history of trigeminal neuralgia for the last 8 years, has been taking multiple medication including gabapentin. Presents today with intractable headache and pain over the trigeminal region since last night at 11:00. In spite of taking her regular regiment of pain medications. Nauseous and vomited couple of times. Has not been eating anything for the last 2 days due to nausea and vomiting. Denies any diarrhea or constipation. Denies any dysuria frequency urgency. Denies any other symptoms. Onset: As above Duration: Last few days Severity: Severe Quality: Sharp Context: As described above Exacerbating factor and relieving factors: Chewing and any movement of the jaw REVIEW OF SYSTEMS: CONSTITUTIONAL : Denies fever, chills, or sweats. Denies recent illness. EENT: Denies eye, ear, throat, or mouth pain or symptoms. Denies nasal or sinus congestion or discharge. Denies throat, tongue, or mouth swelling or difficulty swallowing. CARDIOVASCULAR: Denies chest pain. Denies palpitations or racing or irregular heart beat. Denies ankle edema. RESPIRATORY: Denies cough, cold, or chest congestion. Denies shortness of breath, difficulty breathing, or wheezing. GASTROINTESTINAL: Denies distention. Denies nausea, vomiting, or diarrhea. Denies blood in vomitus, stools, or per rectum. Denies black, tarry stools. Denies constipation. GENITOURINARY: Denies difficulty urinating, painful urination, burning, frequency, blood in urine, or discharge. FEMALE GENITOURINARY: Denies vaginal bleeding, heavy or abnormal periods, irregular periods. Denies vaginal discharge or odor. MUSCULOSKELETAL: Denies back or neck pain or stiffness. Denies joint pain or swelling. SKIN: Denies rash, lesions or sores. HEMATOLOGIC : Denies easy bruising or bleeding. LYMPHATIC: Denies swollen, enlarged glands. NEUROLOGICAL: Denies confusion or altered mental status. Denies passing out or loss of consciousness. Denies dizziness or lightheadedness. Denies headache. Denies weakness or paralysis or loss of use of either side. Denies problems with gait or speech. Denies sensory loss, numbness, or tingling. Denies seizures. PSYCHIATRIC: Denies anxiety or stress. Denies depression, suicidal ideation, or homicidal ideation. ALL OTHER SYSTEMS REVIEWED AND NEGATIVE. PHYSICAL EXAMINATION: GENERAL: Well-appearing, well-nourished and in moderate to severe acute distress. HEAD: Atraumatic, normocephalic. EYES: Pupils equal round and reactive to light, extraocular movements intact, conjunctiva are normal. ENT: Nares patent, oropharynx clear without exudates. Moist mucous membranes. She is tender on the right temporomandibular joint region. NECK: Normal range of motion, supple without lymphadenopathy LUNGS: Breath sounds clear to auscultation bilaterally and equal. No wheezes rales or rhonchi. HEART: Regular rate and rhythm without murmurs ABDOMEN: Soft, nontender, nondistended abdomen. No guarding, no rebound. No masses appreciated. Examination of genitals-deferred Musculoskeletal: Normal range of motion, no pitting or edema. No cyanosis. NEUROLOGICAL: Cranial nerves grossly intact. Normal speech, normal gait. Normal sensory, motor exams PSYCH: Normal mood, normal affect. SKIN: Warm, Dry, normal turgor, no rashes or lesions noted. Dictation was performed using [employer] voice recognition software TRAVEL OUTSIDE OF THE [place].S. IN LAST 30 DAYS: No - HPI Severity: Severe Notes: Dictated - Related Data Allergies/Adverse Reactions: Penicillins Allergy (Verified 12/12/17 08:23) Sulfa (Sulfonamide Antibiotics) Allergy (Verified 12/12/17 08:23) Past Medical History - Social History Smoking Status: Never Smoker Cigarette use (# per day): No Chew tobacco use (# tins/day): No Frequency of alcohol use: Rare Drug Abuse: None Family History: Reviewed & Not Pertinent Pulmonary Medical History: Reports: Hx Asthma, Hx Pneumonia Neurological Medical History: Reports: Hx Migraine Renal/ Medical History: Denies: Hx Peritoneal Dialysis Past Surgical History: Reports: Hx Gynecologic Surgery - fallopian tube/ovary removed Review of Systems - Review of Systems Notes: Dictated Physical Exam - Vital signs Vitals: Pulse Resp BP Pulse Ox 84 28 H 176/134 H 100 12/12/17 08:24 12/12/17 08:24 12/12/17 08:24 12/12/17 08:24 - Notes Notes: Dictated Course - Re-evaluation Re-evalutation: 12/12/17 13:51 Given pain medications improved - Vital Signs Vital signs: Temp Pulse Resp BP Pulse Ox 84 28 H 176/134 H 100 12/12/17 08:24 12/12/17 08:24 12/12/17 08:24 12/12/17 08:24 - Laboratory Result Diagrams: 12/12/17 13:28 12/12/17 11:00 Laboratory results interpreted by me: 12/12/17 12/12/17 11:00 13:28 MCV 76 L MCH 26.0 L RDW 16.4 H Alkaline Phosphatase 131 H Total Protein 8.4 H - Diagnostic Test Radiology reviewed: Image reviewed, Reports reviewed - Abdominal x-ray reported by radiologist as unremarkable Radiology results interpreted by me: 12/12/17 13:51 Noted large amount of fecal material Discharge - Discharge Clinical Impression: Trigeminal neuralgia of right side of face, Constipation by delayed colonic transit Condition: Fair Disposition: HOME, SELF-CARE Instructions: Headache ([facility]), Antinausea Medication ([facility]), Trigeminal Neuralgia ([facility]) Prescriptions: Oxycodone HCl/Acetaminophen [Percocet 5-325 mg Tablet] 1 - 2 tab PO Q4H PRN #7 tablet PRN Reason: Prochlorperazine Maleate [Compazine 10 mg Tablet] 10 mg PO ASDIR PRN #10 tablet PRN Reason: Referrals: CARL WHITMAN MD [Primary Care Provider] - Follow up as needed
--- NOTE | 2017-12-12 10:59 | RADIOLOGY REPORT (SQ) ---
EXAM DESCRIPTION: KUB/ABDOMEN (SINGLE VIEW) COMPLETED DATE/TIME: 12/12/2017 10:42 am REASON FOR STUDY: Abdominal pain COMPARISON: None. NUMBER OF VIEWS: One view. TECHNIQUE: Supine radiographic image of the abdomen acquired. LIMITATIONS: None. FINDINGS: BOWEL GAS PATTERN: Normal bowel gas pattern. No dilated loops. CALCIFICATIONS: No suspicious calcifications. SOFT TISSUES: No gross mass or suggestion of organomegaly. HARDWARE: None in the abdomen. BONES: No acute fracture. No worrisome bone lesions. OTHER: No other significant finding. IMPRESSION: NO RADIOGRAPHIC EVIDENCE FOR ACUTE ABDOMINAL DISEASE. TECHNICAL DOCUMENTATION: JOB ID: [id number] [employer]- All Rights Reserved Reading location - IP/workstation name: [email or web address]
[2017-12-12 11:32] LABS: ALANINE AMINOTRANSFERASE 24 U/L (9-52); ALBUMIN 4.7 g/dL (3.5-5.0); ALKALINE PHOSPHATASE 131 U/L (38-126); ANION GAP 16 (5-19); ASPARTATE AMINO TRANSFERASE 22 U/L (14-36); BILIRUBIN,DIRECT 0.4 mg/dL (0.0-0.4); BILIRUBIN,TOTAL 0.5 mg/dL (0.2-1.3); BLOOD UREA NITROGEN 10 mg/dL (7-20); CALCIUM 9.3 mg/dL (8.4-10.2); CARBON DIOXIDE 28 mmol/L (22-30); CHLORIDE 98 mmol/L (98-107); GLUCOSE 108 mg/dL (75-110); POTASSIUM 4.1 mmol/L (3.6-5.0); SODIUM 142.3 mmol/L (137-145); TOTAL PROTEIN 8.4 g/dL (6.3-8.2)
[2017-12-12 13:37] LABS: ABSOLUTE BASOPHILS # (AUTO) 0.1 10^3/uL (0.0-0.2); ABSOLUTE LYMPHOCYTES (AUTO) 1.9 10^3/uL (0.5-4.7); ABSOLUTE MONOCYTES (AUTO) 0.7 10^3/uL (0.1-1.4); ABSOLUTE NEUT (AUTO) 4.5 10^3/uL (1.7-8.2); BASOPHILS % (AUTO) 1.1 % (0-2); EOSINOPHILS % (AUTO) 0.4 % (0-6); HEMATOCRIT 39.7 % (36.0-47.0); HEMOGLOBIN 13.6 g/dL (12.0-15.5); LYMPHOCYTES % (AUTO) 26.7 % (13-45); MEAN CORPUSCULAR HGB CONC 34.2 g/dL (32.0-36.0); MEAN CORPUSCULAR VOLUME 76 fl (80-97); MONOCYTES % (AUTO) 9.1 % (3-13); PLATELET COUNT 170 10^3/uL (150-450); RED BLOOD COUNT 5.22 10^6/uL (3.72-5.28); RED CELL DISTRIBUTION WIDTH 16.4 % (11.5-14.0); SEGMENTED NEUTROPHILS % (AUTO) 62.7 % (42-78); TOTAL CELLS COUNTED % (AUTO) 100 %; WHITE BLOOD COUNT 7.2 10^3/uL (4.0-10.5)
[2017-12-12 14:13] VITALS: BP 151/89
== END 2017-12-12 14:55 | disposition home or self-care (01) ==
LOC: ER 08:22
DX: G50.0 Trigeminal neuralgia (principal); K59.01 Slow transit constipation; Z88.2 Allergy status to sulfonamides; Z88.0 Allergy status to penicillin; R11.2 Nausea with vomiting, unspecified
CPT/HCPCS: 96376; 99284; 96374; 96375; 36415; 85025; 80053; 74018; J3490; J1200; J3010; J1885; J0780

== ENCOUNTER 2017-12-15 22:53 | Emergency (ER) | payer MEDICAID ==
[2017-12-16] MEDS ORDERED: METHYLPREDNISOLONE INJ 125 MG/2 ML SDV IV ONE (01:55)
[2017-12-16] MEDS ORDERED: LORAZEPAM INJ 2 MG/1 ML VIAL IV ONE (01:55)
[2017-12-16] MEDS ORDERED: KETOROLAC TROMETHAMINE INJ/PF 30 MG/1 ML SDV IV ONE ×2 (01:56→08:22)
[2017-12-16] MEDS ORDERED: ONDANSETRON HCL INJ/PF 4 MG/2 ML SDV IV ONE (02:03)
--- NOTE | 2017-12-16 02:03 | ER Document Report ---
ED Medical Screen (RME) - General Chief Complaint: Chest Pain Stated Complaint: NERVE PAIN Time Seen by Provider: 12/16/17 01:22 Mode of Arrival: Medic Information source: Patient, Relative TRAVEL OUTSIDE OF THE U.S. IN LAST 30 DAYS: No - HPI Notes: 12/16/17 01:59 RME note: Patient is a 37-year-old female 8 year history of trigeminal neuralgia comes in with severe unrelenting pain through the right parietal region of the head consistent with trigeminal neuralgia. The patient's had several visits for the same here, as well as multiple visits for chest pain and abdominal pain. Patient recently moved here from the [facility], [place] and has had 6 visits in the last month and a half to the emergency department. She is awaiting a visit at [place] for her trigeminal neuralgia which is supposed to occur in February. The patient has run out of her Tegretol that she usually takes for trigeminal neuralgia and this has caused a flareup that has led to nausea and vomiting. By report she has not eaten anything for the last 5-6 days. The patient denies any abdominal pain. She reports no current chest pain, but had chest pain prior to arrival at home. No fever or chills. EKG as interpreted by me showed normal sinus rhythm heart rate of 83. There is no gross evidence for acute DE or ischemia noted. Patient last had a chest x-ray that was negative on 11/06/17 and a negative CTA of the chest and abd on 10/17/17. Patient has not had a CT scan of the head performed at this facility with visits over the last few months. She will have repeat blood work and evaluation. Neurologically she moves all extremities, but just moans in pain and will not answer questions consistently. Heart and lung exam are both clear. Please see partner note for restroom evaluation and workup. - Related Data Allergies/Adverse Reactions: Penicillins Allergy (Verified 12/12/17 08:23) Sulfa (Sulfonamide Antibiotics) Allergy (Verified 12/12/17 08:23) Past Medical History Pulmonary Medical History: Reports: Hx Asthma, Hx Pneumonia Neurological Medical History: Reports: Hx Migraine Renal/ Medical History: Denies: Hx Peritoneal Dialysis Past Surgical History: Reports: Hx Gynecologic Surgery - fallopian tube/ovary removed Physical Exam - Vital signs Vitals: Temp Pulse Resp BP Pulse Ox 99.0 F 93 18 146/114 H 96 12/15/17 23:09 12/15/17 23:09 12/15/17 23:09 12/15/17 23:09 12/15/17 23:09 Course - Vital Signs Vital signs: Temp Pulse Resp BP Pulse Ox 99.0 F 93 18 146/114 H 96 12/15/17 23:09 12/15/17 23:09 12/15/17 23:09 12/15/17 23:09 12/15/17 23:09 Doctor's Discharge - Discharge Referrals: CARL WHITMAN MD [Primary Care Provider] - Follow up as needed
[2017-12-16 02:52] LABS: ABSOLUTE BASOPHILS # (AUTO) 0.1 10^3/uL (0.0-0.2); ABSOLUTE EOSINOPHILS # (AUTO) 0.1 10^3/uL (0.0-0.6); ABSOLUTE LYMPHOCYTES (AUTO) 1.8 10^3/uL (0.5-4.7); ABSOLUTE MONOCYTES (AUTO) 0.8 10^3/uL (0.1-1.4); ABSOLUTE NEUT (AUTO) 4.2 10^3/uL (1.7-8.2); BASOPHILS % (AUTO) 0.9 % (0-2); EOSINOPHILS % (AUTO) 1.2 % (0-6); HEMATOCRIT 43.1 % (36.0-47.0); HEMOGLOBIN 14.8 g/dL (12.0-15.5); LYMPHOCYTES % (AUTO) 25.5 % (13-45); MEAN CORPUSCULAR HEMOGLOBIN 26.7 pg (27.0-33.4); MEAN CORPUSCULAR HGB CONC 34.4 g/dL (32.0-36.0); MEAN CORPUSCULAR VOLUME 78 fl (80-97); MONOCYTES % (AUTO) 11.1 % (3-13); PLATELET COUNT 174 10^3/uL (150-450); RED BLOOD COUNT 5.55 10^6/uL (3.72-5.28); RED CELL DISTRIBUTION WIDTH 16.6 % (11.5-14.0); SEGMENTED NEUTROPHILS % (AUTO) 61.3 % (42-78); TOTAL CELLS COUNTED % (AUTO) 100 %; WHITE BLOOD COUNT 6.9 10^3/uL (4.0-10.5)
[2017-12-16 03:10] LABS: ALANINE AMINOTRANSFERASE 23 U/L (9-52); ALBUMIN 4.9 g/dL (3.5-5.0); ALKALINE PHOSPHATASE 111 U/L (38-126); ANION GAP 17 (5-19); ASPARTATE AMINO TRANSFERASE 22 U/L (14-36); BILIRUBIN,DIRECT 0.4 mg/dL (0.0-0.4); BILIRUBIN,TOTAL 0.5 mg/dL (0.2-1.3); BLOOD UREA NITROGEN 12 mg/dL (7-20); CARBON DIOXIDE 29 mmol/L (22-30); CHLORIDE 96 mmol/L (98-107); GLUCOSE 114 mg/dL (75-110); POTASSIUM 4.2 mmol/L (3.6-5.0); SODIUM 141.7 mmol/L (137-145); TOTAL PROTEIN 8.7 g/dL (6.3-8.2)
--- NOTE | 2017-12-16 03:28 | RADIOLOGY REPORT (SQ) ---
EXAM DESCRIPTION: CT HEAD WITHOUT IV CONTRAST COMPLETED DATE/TME: 12/16/2017 01:58 EXAM DESCRIPTION: CT of the head without contrast CLINICAL HISTORY: R headache, hx trigeminal neuralgia COMPARISON: None available TECHNIQUE: Axial CT of the head obtained from the skull apex to the skull base without contrast. FINDINGS: No acute intracranial hemorrhage identified. There is a 2.9 x 1.0 cm midline posterior fossa mass with lipid density. No significant mass effect or midline shift. No shift of the midline, abnormal extra-axial fluid collection or CT evidence of acute ischemic change identified. The ventricular system is unremarkable. No acute abnormalities of the supratentorial white matter, basal ganglia, cerebellum, or brainstem. The visualized paranasal sinuses and the mastoids are clear. No skull fracture identified. Visualized orbits and globes are unremarkable. DLP:1166.82 mGy-cm IMPRESSION: 1. No acute intracranial abnormality identified. 2. 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 Correlation with contrast-enhanced MRI recommended for more complete characterization. No significant mass effect or midline shift. This exam was performed according to our departmental dose-optimization program, which includes automated exposure control, adjustment of the mA and/or kV according to patient size and/or use of iterative reconstruction technique.
--- NOTE | 2017-12-16 06:56 | ER Document Report ---
ED General <KELLY NEGRON - Last Filed: 12/16/17 08:22> - General Mode of Arrival: Medic TRAVEL OUTSIDE OF THE [place] IN LAST 30 DAYS: No <NETO CHEEK - Last Filed: 12/16/17 09:52> - General Chief Complaint: Chest Pain Stated Complaint: NERVE PAIN Time Seen by Provider: 12/16/17 01:22 Notes: 37-year-old female patient with 8 year history of trigeminal neuralgia on the right side. She states that Tegretol has been controlling her symptoms until she recently ran out. Reviewing records shows she should have 4 week supply left, the way it was prescribed at 200 mg 3 times daily. She admitted to taking increased doses to control her pain. Maximum recommended dose is 1200 mg daily with recommendations of trying to decrease the dosing every 2-3 months. She has recently been put on Lyrica, gabapentin, and Lamictal to treat her problem. Difficult to get a good concise history and unable to determine why all these other medications are being used when the patient states Tegretol works. (KELLY NEGRON) - Related Data Allergies/Adverse Reactions: Penicillins Allergy (Verified 12/12/17 08:23) Sulfa (Sulfonamide Antibiotics) Allergy (Verified 12/12/17 08:23) Past Medical History - General Information source: Patient, Relative - Social History Smoking Status: Never Smoker Cigarette use (# per day): No Chew tobacco use (# tins/day): No Drug Abuse: None Lives with: Family Family History: Reviewed & Not Pertinent Patient has suicidal ideation: No Patient has homicidal ideation: No Pulmonary Medical History: Reports: Hx Asthma, Hx Pneumonia Neurological Medical History: Reports: Hx Migraine, Other - History of trigeminal neuralgia Renal/ Medical History: Denies: Hx Peritoneal Dialysis Past Surgical History: Reports: Hx Gynecologic Surgery - fallopian tube/ovary removed <NETO CHEEK - Last Filed: 12/16/17 09:52> Review of Systems - Review of Systems Constitutional: No symptoms reported EENT: No symptoms reported Cardiovascular: No symptoms reported Respiratory: No symptoms reported Gastrointestinal: No symptoms reported Genitourinary: No symptoms reported Female Genitourinary: No symptoms reported Musculoskeletal: No symptoms reported Skin: No symptoms reported Hematologic/Lymphatic: No symptoms reported Neurological/Psychological: See HPI, Other - Pain from trigeminal neuralgia -: Yes All other systems reviewed and negative <NETO CHEEK - Last Filed: 12/16/17 09:52> Physical Exam <KELLY NEGRON - Last Filed: 12/16/17 08:22> <NETO CHEEK - Last Filed: 12/16/17 09:52> - Vital signs Vitals: Temp Pulse Resp BP Pulse Ox 99.0 F 93 18 146/114 H 96 12/15/17 23:09 12/15/17 23:09 12/15/17 23:09 12/15/17 23:09 12/15/17 23:09 - Notes Notes: Physical Exam: General: Alert, appears uncomfortable. HEENT: Normocephalic. Atraumatic. PERRL. Extraocular movements intact. Oropharynx clear. Posterior molars cannot be visualized because patient is uncooperative when opening her mouth. Neck: Supple. Non-tender. Respiratory: No respiratory distress. Clear and equal breath sounds bilaterally. Cardiovascular: Regular rate and rhythm. Abdominal: Normal Inspection. Non-tender. No distension. Normal Bowel Sounds. Back: Non-tender. No deformity or step off. Extremities: Moves all four extremities. Upper extremities: Normal inspection. Normal ROM. Lower extremities: Normal inspection. No edema. Normal ROM. Neurological: Normal cognition. AAOx4. Normal speech. Psychological: Normal affect. Normal Mood. Skin: Warm. Dry. Normal color. (NETO CHEEK) Course - Laboratory Result Diagrams: 12/16/17 02:20 12/16/17 02:20 - Diagnostic Test Radiology reviewed: Reports reviewed - No acute process on CT scan of the head. A 2.9 x 1.0 cm midline posterior fossa mass with fat density likely represents lipoma or intracranial dermoid cyst. Correlation with contrasted MRI is recommended. <KELLY NEGRON - Last Filed: 12/16/17 08:22> - Laboratory Result Diagrams: 12/16/17 02:20 12/16/17 02:20 <NETO CHEEK - Last Filed: 12/16/17 09:52> - Re-evaluation Re-evalutation: 12/16/17 08:08 I have advised the patient that I will provide a prescription for carbamazepine 100 mg 3 times daily level for her for the next few days to give her time to follow-up with her primary care provider and discuss how her trigeminal neuralgia is going to be managed. Possibly be given a copy of the CT scan results with recommendation for outpatient contrasted MRI to evaluate the posterior fossa mass. (KELLY NEGRON) - Vital Signs Vital signs: Temp Pulse Resp BP Pulse Ox 99.0 F 93 13 137/99 H 96 12/15/17 23:09 12/15/17 23:09 12/16/17 08:54 12/16/17 08:54 12/16/17 08:54 - Laboratory Laboratory results interpreted by me: 12/16/17 12/16/17 12/16/17 02:20 02:20 03:20 RBC 5.55 H MCV 78 L MCH 26.7 L RDW 16.6 H Chloride 96 L Glucose 114 H Total Protein 8.7 H Carbamazepine < 2.4 L Discharge <KELLY NEGRON - Last Filed: 12/16/17 08:22> <NETO CHEEK - Last Filed: 12/16/17 09:52> - Discharge Clinical Impression: Trigeminal neuralgia of right side of face Condition: Stable Disposition: HOME, SELF-CARE Additional Instructions: You will be provided a prescription for the Tegretol at a 400 mg every 8 hour dosing. This is the maximum recommended dose of Tegretol for trigeminal neuralgia. You should follow-up with your primary care provider in the next few days to discuss how your trigeminal neuralgia is going to be managed. Your also given a copy of the CT scan of your brain which the radiologist recommended an outpatient contrasted MRI of the brain to evaluate a posterior fossa mass. RETURN TO THE EMERGENCY ROOM IF ANY NEW OR WORSENING SYMPTOMS. Prescriptions: Carbamazepine [Tegretol] 2 tab PO TID #30 tablet Referrals: CARL WHITMAN MD [Primary Care Provider] - 12/19/17 Scribe Attestation: 12/16/17 08:12 I personally performed the services described in the documentation, reviewed and edited the documentation which was dictated to the scribe in my presence, and it accurately records my words and actions. (KELLY NEGRON) Scribe Documentation - Scribe Written by Nila:: Nila Pederson, 12/16/2017 [id number] acting as scribe for :: Darleen <NETO CHEEK - Last Filed: 12/16/17 09:52>
[2017-12-16] MEDS ORDERED: CARBAMAZEPINE 200 MG TABLET PO ONE (07:03)
[2017-12-16] MEDS ORDERED: NORMAL SALINE 1000 ML 1,000 ML IV ONE (07:03)
[2017-12-16 09:01] VITALS: BP 137/99
--- NOTE | 2017-12-16 09:56 | EKG REPORT ---
SEVERITY:- ABNORMAL ECG - SINUS RHYTHM PROBABLE LEFT ATRIAL ABNORMALITY NONSPECIFIC T ABNORMALITIES, LATERAL LEADS BORDERLINE PROLONGED QT INTERVAL : Confirmed by: Cass Reyna MD 16-Dec-2017 09:55:24
== END 2017-12-16 09:01 | disposition home or self-care (01) ==
LOC: ER 22:53
DX: G50.0 Trigeminal neuralgia (principal); R07.9 Chest pain, unspecified; Z88.0 Allergy status to penicillin; Z88.2 Allergy status to sulfonamides
CPT/HCPCS: 93005; 96376; 99285; 96361; 96374; 96375; 36415; 84702; 80156; 85025; 80053; 84484; 70450; 93010; J3490; J2930; J1885; J2060; J2405; J7030

== ENCOUNTER 2018-03-26 21:41 | Emergency (ER) | payer MEDICAID ==
--- NOTE | 2018-03-26 23:24 | ER Document Report ---
HPI - HPI Patient complains to provider of: Trigeminal neuralgia pain on the right side of her face and cough Time Seen by Provider: 03/26/18 23:02 Onset: Other - 3 days ago Onset/Duration: Gradual, Better Quality of pain: Burning, Sharp Severity: Moderate Pain Level: 2 Associated Symptoms: Productive cough, Hoarseness, Rhinnorhea. denies: Fever, Nausea, Vomiting, Shortness of breath Exacerbated by: Other - Smoking Relieved by: Denies Similar symptoms previously: Yes - Trigeminal neuralgia pain has been a chronic issue for her Recently seen / treated by doctor: Yes - She sees specialists at [facility] for trigeminal neuralgia as well as the pain c Notes: Patient is a 37-year-old female presenting to the emergency department for trigeminal neuralgia pain on the right side of her face as well as cough. The trigeminal neuralgia pain seems to be exacerbated by cough. She has been seeing specialists at [facility] to manage her trigeminal neuralgia and she currently takes gabapentin, carbamazepine, naproxen sodium, and Brilinta for the pain. She has a surgical consult at [facility] in the next few weeks. Her upper respiratory symptoms began on Tuesday with productive coughing and runny nose. Her daughter who is in the emergency department with her also began experiencing similar symptoms on Tuesday as well. She is in no acute distress sitting comfortably in exam room, respirations are even and unlabored. - ROS ROS below otherwise negative: Yes - CONSTITUTIONAL Constitutional: DENIES: Fever, Chills - EENT EENT: REPORTS: Nasal Drainage-Clear, Congestion - NEURO Neurology: DENIES: Headache, Weakness - CARDIOVASCULAR Cardiovascular: DENIES: Chest pain - RESPIRATORY Respiratory: REPORTS: Coughing - GASTROINTESTINAL Gastrointestinal: DENIES: Abdominal Pain, Nausea, Diarrhea - DERM Skin Color: Normal Skin Problems: None Past Medical History - General Information source: Patient - Social History Smoking Status: Current Every Day Smoker Chew tobacco use (# tins/day): No Frequency of alcohol use: Rare Drug Abuse: None Family History: Reviewed & Not Pertinent Patient has suicidal ideation: No Patient has homicidal ideation: No - Past Medical History Cardiac Medical History: Reports: None Pulmonary Medical History: Reports: Hx Asthma, Hx Pneumonia Neurological Medical History: Reports: Hx Migraine Renal/ Medical History: Denies: Hx Peritoneal Dialysis Past Surgical History: Reports: Hx Gynecologic Surgery - fallopian tube/ovary removed Vertical Provider Document - CONSTITUTIONAL Agree With Documented VS: Yes Notes: PHYSICAL EXAMINATION: GENERAL: Well-appearing, well-nourished and in no acute distress. HEAD: Atraumatic, normocephalic. Mild flushing noted on right side of face. EYES: Pupils equal round and reactive to light, extraocular movements intact, sclera anicteric, conjunctiva are normal. ENT: nares patent, oropharynx clear without exudates. Moist mucous membranes. NECK: Normal range of motion, supple without lymphadenopathy LUNGS: Breath sounds equal bilaterally. scant Expiratory wheezes noted bilaterally in all lung damon. HEART: Regular rate and rhythm without murmurs EXTREMITIES: Normal range of motion, no pitting or edema. No cyanosis. NEUROLOGICAL: No focal neurological deficits. Moves all extremities spontaneously and on command. PSYCH: Normal mood, normal affect. SKIN: Warm, Dry, normal turgor, no rashes or lesions noted. - INFECTION CONTROL TRAVEL OUTSIDE OF THE [place] IN LAST 30 DAYS: No Course - Re-evaluation Re-evalutation: 03/26/18 23:39 Discussed with patient albuterol treatments. Patient states she wishes to be discharged with an inhaler. She denies wanting a breathing treatment in the emergency room. Patient's pulse ox is 100%, she has no work of breathing, no tachypnea. Discussed prescribing her an inhaler and prednisone. Discussed follow-up with primary care provider in the next 24-48 hours. - Vital Signs Vital signs: Temp Pulse Resp BP Pulse Ox 98.2 F 91 143/110 H 100 03/26/18 22:50 03/26/18 22:50 03/26/18 22:50 03/26/18 22:50 Discharge - Discharge Clinical Impression: Acute bronchospasm URI (upper respiratory infection) Qualifiers: URI type: unspecified viral URI Qualified Code(s): J06.9 - Acute upper respiratory infection, unspecified Condition: Stable Disposition: HOME, SELF-CARE Instructions: Upper Respiratory Illness ([facility]), Asthma ([facility]) Additional Instructions: As we discussed you have been seen and treated in the emergency department for an upper respiratory infection. You should take medications as prescribed. You should follow-up with primary care provider in the next 24-48 hours. Please return to the emergency room for any other concerning symptoms. Prescriptions: Benzonatate [Tessalon Perles 100 mg Capsule] 100 mg PO Q8HP PRN #40 capsule PRN Reason: Albuterol Sulfate [Proair HFA Inhalation Aerosol 8.5 gm MDI] 1 puff IH Q4 PRN # 1 mdi PRN Reason: Prednisone [Deltasone 20 mg Tablet] 3 tab PO DAILY 5 Days tablet Referrals: CARL WHITMAN MD [Primary Care Provider] - Follow up as needed
[2018-03-26] MEDS ORDERED: ALBUTEROL SULFATE HFA (90 MCG/PUFF) 8 GM MDI (1 MDI/ER DISP) IH ONE (23:45)
[2018-03-27 00:12] VITALS: BP 148/99
== END 2018-03-27 00:12 | disposition home or self-care (01) ==
LOC: ER 21:41
DX: J06.9 Acute upper respiratory infection, unspecified (principal); B97.89 Other viral agents as the cause of diseases classified elsewhere; J45.909 Unspecified asthma, uncomplicated; R05 Cough; R09.89 Other specified symptoms and signs involving the circulatory and respiratory systems; F17.200 Nicotine dependence, unspecified, uncomplicated; G50.0 Trigeminal neuralgia; Z79.899 Other long term (current) drug therapy; Z79.02 Long term (current) use of antithrombotics/antiplatelets; Z79.1 Long term (current) use of non-steroidal anti-inflammatories (NSAID); Z87.01 Personal history of pneumonia (recurrent)
CPT/HCPCS: 99283; J3490

== ENCOUNTER 2018-07-01 11:56 | Emergency (ER) | payer MEDICAID ==
[2018-07-01] MEDS ORDERED: PREGABALIN 75 MG CAPSULE PO ONE (12:37)
[2018-07-01] MEDS ORDERED: KETOROLAC TROMETHAMINE INJ/PF 30 MG/1 ML SDV IV ONE (12:37)
[2018-07-01] MEDS ORDERED: NORMAL SALINE 1000 ML 1,000 ML IV ONE (12:37)
[2018-07-01] MEDS ORDERED: METOCLOPRAMIDE HCL INJ/PF 10 MG/2 ML SDV IV ONE (12:38)
[2018-07-01] MEDS ORDERED: DEXAMETHASONE SOD PHOS INJ 10 MG/1 ML VIAL IV ONE (12:38)
--- NOTE | 2018-07-01 13:44 | ER Document Report ---
ED General - General Chief Complaint: Headache Stated Complaint: HEAD PAIN, FACIAL AND NECK PAIN Time Seen by Provider: 07/01/18 12:25 Primary Care Provider: CARL WHITMAN MD [Primary Care Provider] - Follow up as needed Notes: Patient is a 37-year-old female with history of trigeminal neuralgia that presents to the emergency department for chief complaint of right facial pain. Patient states that her pain is getting progressively worse since she ran out of her Lyrica, she is on a complex regimen of medications, and when she starts coming off them her pain seems to get significantly worse. She ran out of her Lyrica this past , she is been having the sharp typical trigeminal pain on the right side of her face that she always has. She states that she is been having a hard time to get her medications refilled because her coordination of care at [facility] was difficult to coordinate with her local primary care physician. She currently rates her pain as a 9 out of 10 describes as a sharp electric sensation on the right side of her face. Denies any visual changes, numbness, weakness or tingling. No other complaints at this time. Past Medical History: Trigeminal neuralgia asthma Past Surgical History: Surgery for ectopic Social History: Admits to smoking cigarettes, denies alcohol or drug use. Family History: Reviewed and noncontributory for presenting illness Allergies: Reviewed, see documented allergy list. REVIEW OF SYSTEMS: Other than noted above, the 12 point review of systems was reviewed with the patient and were negative, all pertinent findings are included in the HPI. PHYSICAL EXAMINATION: Vital signs reviewed, nursing noted reviewed. GENERAL: Patient appears uncomfortable HEAD: Atraumatic, normocephalic. EYES: Eyes appear normal, extraocular movements intact, sclera anicteric, conjunctiva are normal. ENT: nares patent, oropharynx clear without exudates. Moist mucous membranes. Mild tenderness to palpation over the right zygoma, and jaw NECK: Normal range of motion, supple without lymphadenopathy LUNGS: Breath sounds clear to auscultation bilaterally and equal. No wheezes rales or rhonchi. HEART: Regular rate and rhythm without murmurs ABDOMEN: Soft, nontender, normoactive bowel sounds. No rebound, guarding, or rigidity. No masses appreciated. EXTREMITIES: Nontender, good range of motion, no pitting or edema. NEUROLOGICAL: No focal neurological deficits. Moves all extremities spontaneously Motor and sensory grossly intact on exam. PSYCH: Normal mood, normal affect. SKIN: Warm, Dry, normal turgor, no rashes or lesions noted on exposed skin TRAVEL OUTSIDE OF THE [place] IN LAST 30 DAYS: No - Related Data Allergies/Adverse Reactions: Penicillins Allergy (Verified 07/01/18 12:34) Sulfa (Sulfonamide Antibiotics) Allergy (Verified 07/01/18 12:34) Past Medical History - Social History Smoking Status: Current Every Day Smoker Chew tobacco use (# tins/day): No Frequency of alcohol use: None Drug Abuse: None Family History: Reviewed & Not Pertinent Patient has suicidal ideation: No Patient has homicidal ideation: No Pulmonary Medical History: Reports: Hx Asthma, Hx Pneumonia Neurological Medical History: Reports: Hx Migraine Renal/ Medical History: Denies: Hx Peritoneal Dialysis Past Surgical History: Reports: Hx Gynecologic Surgery - fallopian tube/ovary removed Physical Exam - Vital signs Vitals: Temp Pulse Resp BP Pulse Ox 98.6 F 77 18 151/85 H 96 07/01/18 12:21 07/01/18 12:21 07/01/18 12:21 07/01/18 12:21 07/01/18 12:21 Course - Re-evaluation Re-evalutation: Patient seen and examined vital signs reviewed. Patient was evaluated and treated as appropriate for the patient's presenting symptoms and complaint, with consideration of any critical or life threatening conditions that may be associated with their obtained history and exam as noted above. Patient was treated with IV fluids, p.o. Lyrica, and IV Reglan, Toradol, dexamethasone The patient was re-evaluated and was improved Evaluation was most consistent with trigeminal neuralgia on the right side of the face, patient provided prescription for 2 weeks worth of the Lyrica she is previously prescribed, and have her follow-up with her neurologist. Plan of care was discussed with the patient at this point, after careful consideration I feel that that patient can be discharged from the emergency department, the patient was educated treatments and reasons to return to the emergency department based on their presumed diagnosis as noted above, they were advised to followup with a primary care physician in 2-3 days. Patient was agreeable to plan of care. *Note is created using voice recognition software and may contain spelling, syntax or grammatical errors. - Vital Signs Vital signs: Temp Pulse Resp BP Pulse Ox 98.1 F 74 18 155/111 H 98 07/01/18 13:57 07/01/18 13:57 07/01/18 13:57 07/01/18 13:57 07/01/18 13:57 Discharge - Discharge Clinical Impression: Trigeminal neuralgia of right side of face Condition: Stable Disposition: HOME, SELF-CARE Instructions: Trigeminal Neuralgia ([facility]) Additional Instructions: Please follow-up with your neurologist at [facility] to be further evaluated for other interventions for your trigeminal neuralgia. Prescriptions: Pregabalin [Lyrica 75 mg Capsule] 150 mg PO TID #90 capsule Referrals: CARL WHITMAN MD [Primary Care Provider] - Follow up as needed
[2018-07-01 14:02] VITALS: BP 155/111
== END 2018-07-01 14:02 | disposition home or self-care (01) ==
LOC: ER 11:56
DX: G50.0 Trigeminal neuralgia (principal); T42.6X6A Underdosing of other antiepileptic and sedative-hypnotic drugs, initial encounter; Z91.128 Patient's intentional underdosing of medication regimen for other reason; Z91.14 Patient's other noncompliance with medication regimen; J45.909 Unspecified asthma, uncomplicated; F17.210 Nicotine dependence, cigarettes, uncomplicated; Z88.0 Allergy status to penicillin; Z88.2 Allergy status to sulfonamides
CPT/HCPCS: 99283; 96361; 96374; 96375; J1885; J2765; J7030; J1100; J3490

== ENCOUNTER 2018-09-20 08:09 | Emergency (ER) | payer MEDICAID ==
[2018-09-20] MEDS ORDERED: PREDNISONE 20 MG TABLET PO ONE (09:03)
[2018-09-20] MEDS ORDERED: IPRATROPIUM/ALBUTEROL 0.5-2.5 MG/3 ML AMPUL NEB ONE (09:03)
[2018-09-20] MEDS ORDERED: KETOROLAC TROMETHAMINE 60 MG/2 ML SDV IM ONE (09:04)
[2018-09-20] MEDS ORDERED: OXYCODONE-ACETAMINOPHEN 5-325 MG TABLET PO ONE (09:04)
--- NOTE | 2018-09-20 09:05 | ER Document Report ---
HPI - HPI Patient complains to provider of: Back pain, cough Time Seen by Provider: 09/20/18 08:34 Onset: Other Onset/Duration: Persistent Quality of pain: Achy Pain Level: 5 Context: Patient presents complaining of low back pain that she has had off and on for several months. Patient states 3 days ago it started to radiate to the right upper back area. Patient reports cough for the past several days as well. Patient denies any urinary symptoms or fever. Associated Symptoms: Nonproductive cough, Other - Low back pain, right upper back pain. denies: Fever, Headache, Nausea, Vomiting Exacerbated by: Movement Relieved by: Denies Similar symptoms previously: Yes Recently seen / treated by doctor: No - ROS ROS below otherwise negative: Yes Systems Reviewed and Negative: Yes All other systems reviewed and negative - CONSTITUTIONAL Constitutional: DENIES: Fever, Chills - EENT EENT: DENIES: Sore Throat - NEURO Neurology: DENIES: Headache, Weakness - CARDIOVASCULAR Cardiovascular: DENIES: Chest pain - RESPIRATORY Respiratory: REPORTS: Coughing. DENIES: Trouble Breathing - GASTROINTESTINAL Gastrointestinal: DENIES: Abdominal Pain, Nausea, Patient vomiting - URINARY Urinary: DENIES: Dysuria - REPRODUCTIVE Reproductive: DENIES: : - MUSCULOSKELETAL Musculoskeletal: REPORTS: Back Pain. DENIES: Extremity pain, Neck Pain - DERM Skin Color: Normal Skin Problems: None Past Medical History - General Information source: Patient - Social History Smoking Status: Current Every Day Smoker Smoking Education Provided: Yes Frequency of alcohol use: None Drug Abuse: None Occupation: None Lives with: Family Family History: Reviewed & Not Pertinent Patient has suicidal ideation: No Patient has homicidal ideation: No - Medical History Medical History: Other - Trigeminal neuralgia Pulmonary Medical History: Reports: Hx Asthma, Hx Pneumonia Neurological Medical History: Reports: Hx Migraine Renal/ Medical History: Denies: Hx Peritoneal Dialysis Past Surgical History: Reports: Hx Gynecologic Surgery - fallopian tube/ovary removed Vertical Provider Document - CONSTITUTIONAL Agree With Documented VS: Yes Exam Limitations: No Limitations General Appearance: WD/WN, No Apparent Distress - INFECTION CONTROL TRAVEL OUTSIDE OF THE [place] IN LAST 30 DAYS: No - HEENT HEENT: Atraumatic, Normal ENT Exam, Normocephalic - NECK Neck: Normal Inspection, Supple. negative: Lymphadenopathy-Left, Lymphadenopathy-Right - RESPIRATORY Respiratory: No Respiratory Distress, Chest Non-Tender, Rhonchi, Wheezing - CARDIOVASCULAR Cardiovascular: Regular Rate, Regular Rhythm, No Murmur - BACK Back: negative: CVA Tenderness-Right, CVA Tenderness-Left Notes: Right upper thoracic paraspinal muscle tenderness worse with movement and palpation. Patient with lower lumbar midline tenderness, no step-off or deformity, left paraspinal lumbar tenderness. - MUSCULOSKELETAL/EXTREMETIES Musculoskeletal/Extremeties: MAEW, FROM - NEURO Level of Consciousness: Awake, Alert, Appropriate Motor/Sensory: No Motor Deficit, No Sensory Deficit Notes: No saddle anesthesia - DERM Integumentary: Warm, Dry, No Rash Course - Re-evaluation Re-evalutation: 09/20/18 11:19 Patient's x-rays reviewed, no concern for acute finding on her L-spine, no pneumonia or pneumothorax on x-ray. Will treat for asthma exacerbation at this time and chronic low back pain. The patient presents with low back pain without signs of spinal cord compression, cauda equina syndrome, infection, aneurysm, or other serious etiology. The patient is neurologically intact. Given the extremely risk of these diagnoses further testing and evaluation for these possibilities does not appear to be indicated at this time. Patient has been instructed to return if the symptoms worsen or change in any way. - Vital Signs Vital signs: Temp Pulse Resp BP Pulse Ox 98.6 F 92 20 122/62 96 09/20/18 08:17 09/20/18 08:17 09/20/18 08:17 09/20/18 08:17 09/20/18 08:17 - Laboratory Laboratory results interpreted by me: 09/20/18 11:19 Labs- Entire Visit 09/20/18 09:24 Urine Color YELLOW Urine Appearance SLIGHTLY-CLOUDY Urine pH 5.0 Ur Specific [place] 1.025 Urine Protein NEGATIVE Urine Glucose (UA) NEGATIVE Urine Ketones NEGATIVE Urine Blood NEGATIVE Urine Nitrite NEGATIVE Urine Bilirubin NEGATIVE Urine Urobilinogen NEGATIVE Ur Leukocyte Esterase NEGATIVE Urine WBC (Auto) 1 Urine RBC (Auto) 0 Urine Bacteria (Auto) TRACE Squamous Epi Cells Auto 9 Urine Mucus (Auto) OCC Urine Ascorbic Acid NEGATIVE Urine HCG, Qual NEGATIVE - Diagnostic Test Radiology reviewed: Image reviewed, Reports reviewed Discharge - Discharge Clinical Impression: Asthma exacerbation Qualifiers: Asthma severity: unspecified severity Asthma persistence: unspecified Qualified Code(s): J45.901 - Unspecified asthma with (acute) exacerbation Low back pain Qualifiers: Chronicity: unspecified Back pain laterality: unspecified Sciatica presence: without sciatica Qualified Code(s): M54.5 - Low back pain Upper back strain Qualifiers: Encounter type: initial encounter Qualified Code(s): S29.012A - Strain of muscle and tendon of back wall of thorax, initial encounter Condition: Stable Disposition: HOME, SELF-CARE Instructions: Asthma ([facility]), Ice Packs ([facility]), Low Back Pain ([facility]), Muscle Strain ([facility]), Steroid Medication, Warm Packs ([facility]) Additional Instructions: Return immediately for any new or worsening symptoms Followup with your primary care provider, call tomorrow to make a followup appointment Follow-up with orthopedics for further evaluation of persistent low back pain. Stop smoking Prescriptions: Lidocaine [Lidoderm 5% (700 mg) Transdermal Patch] 1 patch TP DAILY PRN #10 adh..patch PRN Reason: Prednisone [Deltasone 10 mg Tablet] 10 mg PO ASDIR PRN #21 tablet PRN Reason: Forms: Smoking Cessation Education Referrals: JUAN ARZATE FNP [NO LOCAL MD] - Follow up as needed
[2018-09-20] MEDS: ALBUTEROL SULFATE 0.083% NEB 2.5 MG/3 ML AMPUL NEB SCH ×2 (09:21→09:33)
[2018-09-20 09:41] LABS: APPEARANCE,URINE SLIGHTLY-CLOUDY; BILIRUBIN,URINE NEGATIVE (NEGATIVE); COLOR,URINE YELLOW; GLUCOSE, URINE NEGATIVE (NEGATIVE); KETONES,URINE NEGATIVE (NEGATIVE); LEUKOCYTE ESTERASE,URINE NEGATIVE (NEGATIVE); NITRITE,URINE NEGATIVE (NEGATIVE); PROTEIN,URINE NEGATIVE (NEGATIVE); URINE SPECIFIC GRAVITY 1.025; UROBILINOGEN,URINE NEGATIVE mg/dL (<2.0)
--- NOTE | 2018-09-20 10:45 | RADIOLOGY REPORT (SQ) ---
EXAM DESCRIPTION: CHEST 2 VIEWS COMPLETED DATE/TIME: 09/20/2018 10:36 am REASON FOR STUDY: cough COMPARISON: None. EXAM PARAMETERS: NUMBER OF VIEWS: two views TECHNIQUE: Digital Frontal and Lateral radiographic views of the chest acquired. RADIATION DOSE: NA LIMITATIONS: none FINDINGS: LUNGS AND PLEURA: No opacities, masses or pneumothorax. No pleural effusion. MEDIASTINUM AND HILAR STRUCTURES: No masses or contour abnormalities. HEART AND VASCULAR STRUCTURES: Heart normal size. No evidence for failure. BONES: No acute findings. HARDWARE: None in the chest. OTHER: No other significant finding. IMPRESSION: No focal consolidation or other evidence of acute cardiopulmonary process. TECHNICAL DOCUMENTATION: JOB ID: [id number] [employer]- All Rights Reserved Reading location - IP/workstation name: [email or web address]
--- NOTE | 2018-09-20 10:49 | RADIOLOGY REPORT (SQ) ---
EXAM DESCRIPTION: L SPINE WHOLE COMPLETED DATE/TIME: 09/20/2018 10:36 am REASON FOR STUDY: low back pain COMPARISON: None. NUMBER OF VIEWS: Five views including obliques. TECHNIQUE: AP, lateral, oblique, and sacral radiographic images acquired of the lumbar spine. LIMITATIONS: None. FINDINGS: MINERALIZATION: Normal. SEGMENTATION: Normal. No transitional anatomy. ALIGNMENT: Normal. VERTEBRAE: Maintained height. No fracture or worrisome bone lesion. DISCS: Preserved height. No significant osteophytes or end plate irregularity. POSTERIOR ELEMENTS: Pedicles and facets are intact. No pars defect or posterior arch defects. HARDWARE: None in the spine. PARASPINAL SOFT TISSUES: Normal. PELVIS: Intact as visualized. No fractures or worrisome bone lesions. SI joints intact. OTHER: No other significant finding. IMPRESSION: No acute bony abnormality. No significant degenerative change. TECHNICAL DOCUMENTATION: JOB ID: [id number] [email or web address]- All Rights Reserved Reading location - IP/workstation name: [email or web address]
[2018-09-20 11:45] VITALS: BP 135/85
== END 2018-09-20 11:45 | disposition home or self-care (01) ==
LOC: ER 08:09
DX: S29.012A Strain of muscle and tendon of back wall of thorax, initial encounter (principal); J45.901 Unspecified asthma with (acute) exacerbation; M54.5 Low back pain; M54.9 Dorsalgia, unspecified; R05 Cough; M54.6 Pain in thoracic spine; X58.XXXA Exposure to other specified factors, initial encounter; F17.200 Nicotine dependence, unspecified, uncomplicated
CPT/HCPCS: 94640 ×2; 99284; 96372; 81025; 81001; 71046; 72110; J1885; J7512; J7620

== ENCOUNTER 2018-11-29 20:49 | Emergency (ER) | payer MEDICAID ==
--- NOTE | 2018-11-29 23:22 | ER Document Report ---
ED General - General Chief Complaint: Back Pain Stated Complaint: BACK PAIN Time Seen by Provider: 11/29/18 23:21 Primary Care Provider: CARL WHITMAN MD [Primary Care Provider] - Follow up as needed TRAVEL OUTSIDE OF THE U.S. IN LAST 30 DAYS: No - HPI Notes: 38-year-old female to the emergency department with complaints of acute on chronic flare of her trigeminal neuralgia to the right side of her face as well as right-sided low back pain that radiates up the side of the right back for months. States that she has an appointment at [facility] with neurosurgery about her trigeminal neuralgia tomorrow. She states that she takes Lamictal, Tegretol, Lyrica, gabapentin for her trigeminal neuralgia. States that it has controlled her in the past but it has not recently. She denies any fevers, chills, as of breath, bladder or bowel incontinence, urinary retention, IV drug abuse, saddle paresthesias, radiculopathy, falls, blunt trauma. Patient states that her back seems to gets worse when she is standing for long periods of time. She states that she also feels very stiff when she is getting up from sitting position. - Related Data Allergies/Adverse Reactions: Penicillins Allergy (Verified 07/01/18 12:34) Sulfa (Sulfonamide Antibiotics) Allergy (Verified 07/01/18 12:34) Past Medical History - General Information source: Patient, Relative - Social History Smoking Status: Never Smoker Frequency of alcohol use: None Drug Abuse: None Family History: Reviewed & Not Pertinent Pulmonary Medical History: Reports: Hx Asthma, Hx Pneumonia Neurological Medical History: Reports: Hx Migraine Renal/ Medical History: Denies: Hx Peritoneal Dialysis Past Surgical History: Reports: Hx Gynecologic Surgery - fallopian tube/ovary removed Review of Systems - Review of Systems Constitutional: Malaise. denies: Chills, Fever EENT: Other - Right-sided facial pain Cardiovascular: denies: Palpitations, Orthopnea, Dyspnea, Syncope, Dizziness, Lightheaded Respiratory: denies: Cough, Short of breath Gastrointestinal: denies: Abdominal pain, Diarrhea, Nausea, Vomiting Genitourinary: denies: Burning, Dysuria, Frequency, Flank pain, Hematuria, Incontinence Musculoskeletal: Back pain Skin: No symptoms reported Hematologic/Lymphatic: No symptoms reported Neurological/Psychological: No symptoms reported -: Yes All other systems reviewed and negative Physical Exam - Vital signs Vitals: Temp Pulse Resp BP Pulse Ox 98.2 F 95 20 148/105 H 96 11/29/18 21:02 11/29/18 21:02 11/29/18 21:02 11/29/18 21:02 11/29/18 21:02 Interpretation: Normal - General General appearance: Appears well, Alert - HEENT Head: Normocephalic, Atraumatic Eyes: Normal Pupils: PERRL Ears: Normal External canal: Normal Tympanic membrane: Normal Sinus: Normal Nasal: Normal Mouth/Lips: Normal Mucous membranes: Normal Pharynx: Normal Neck: Normal - Respiratory Respiratory status: No respiratory distress Chest status: Nontender Breath sounds: Normal Chest palpation: Normal - Cardiovascular Rhythm: Regular Heart sounds: Normal auscultation Murmur: No - Abdominal Inspection: Obese Distension: No distension Bowel sounds: Normal Tenderness: Nontender Organomegaly: No organomegaly - Back Back: Normal, Tender - There is tenderness to palpation over the right lumbar paraspinals and into the thoracic para spinal's with noted muscle spasm. There is no tenderness to midline palpation over the cervical, thoracic or lower midline spine. She can ambulate without assistance. She has negative straight leg raise bilaterally.. No: Vertebra tenderness - Extremities General upper extremity: Normal inspection, Nontender, Normal color, Normal ROM, Normal temperature General lower extremity: Normal inspection, Nontender, Normal color, Normal ROM, Normal temperature, Normal weight bearing. No: Mariama's sign - Neurological Neuro grossly intact: Yes Cognition: Normal Orientation: AAOx4 Jacky Coma Scale Verbal: Oriented Speech: Normal Cranial nerves: Normal, Other - Patient with tenderness to palpation over the right face that is consistent with her trigeminal neuralgia.. No: Facial palsy, Forehead sparing, Gaze palsy, Sensory deficit, Tongue deviation Cerebellar coordination: Normal. 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 No: Pronator drift - Psychological Associated symptoms: Normal affect, Normal mood - Skin Skin Temperature: Warm Skin Moisture: Dry Skin Color: Normal Course - Re-evaluation Re-evalutation: 11/30/18 just prior to discharge patient's blood pressure was retaken and found to be hypertensive. Patient has not taken her metoprolol tonight. She also reported to RN that she was having some left-sided chest pain that has been ongoing and constant for 1 week. Gets worse when she takes a deep big deep breath and also worse when she coughs. She denies any diaphoresis, vomiting, shortness of breath, back pain, jaw pain, neck pain, shoulder pain. Denies any leg swelling. She does have hypertension. She is not diabetic, she does not have hyperlipidemia. She does have tenderness to palpation over the left anterior chest wall. She does not have crepitus or step-off. Will obtain EKG and chest x-ray. Suspect that this is related to musculoskeletal from coughing. Noted EKG which is reassuring she has a rate of 83 with a rhythm of sinus. She has no STEMI. She has lateral ST abnormalities but these are actually improved from prior on 12/15/2017 there is no left ventricular hypertrophy there is no axis deviation. Noted x-ray which is negative for pneumonia or any other acute abnormality. Impression: Acute on chronic trigeminal neuralgia to the right face and right sided back pain most consistent with muscle spasm. Left chest wall pain. Patient has appoint with neurosurgery tomorrow and I have urged her to keep it without fail. I will add to her regimen Flexeril. She is feeling better after medicines here. Urged to return if she has any worsening symptoms. She agrees with the plan. - Vital Signs Vital signs: Temp Pulse Resp BP Pulse Ox 97.7 F 81 20 167/112 H 96 11/30/18 00:48 11/30/18 00:48 11/30/18 00:48 11/30/18 00:48 11/30/18 00:48 Discharge - Discharge Clinical Impression: Trigeminal neuralgia of right side of face, Right-sided back pain, Muscle spasm, Elevated blood pressure reading, Cough, Left-sided chest wall pain Condition: Stable Disposition: HOME, SELF-CARE Instructions: Chest Wall Pain ([facility]), Trigeminal Neuralgia ([facility]) Additional Instructions: FOLLOW UP WITH NEUROSURGERY AT [facility] SCHEDULED WITHOUT FAIL ON THIS UPCOMING TUESDAY. TAKE ALL YOUR NORMAL TRIGEMINAL MEDICINES PRESCRIBED. TAKE MEDICINES PRESCRIBED TO YOU HERE. RETURN IF ANY WORSENING PAIN, FEVERS, BLADDER/BOWEL INCONTINENCE, NUMBNESS/TINGLING, INABILITY TO URINATE. Prescriptions: Cyclobenzaprine HCl [Flexeril 5 mg Tablet] 1 - 2 tab PO TID PRN #15 tablet PRN Reason: Forms: Parent Work Note, Return to Work Referrals: CARL WHITMAN MD [Primary Care Provider] - Follow up as needed
[2018-11-29] MEDS ORDERED: KETOROLAC TROMETHAMINE 60 MG/2 ML SDV IM ONE (23:48)
[2018-11-29] MEDS ORDERED: DIAZEPAM 5 MG TABLET PO ONE (23:48)
[2018-11-29] MEDS ORDERED: DEXAMETHASONE SOD PHOS INJ 10 MG/1 ML VIAL IM ONE (23:48)
[2018-11-30 00:50] VITALS: BP 167/112
--- NOTE | 2018-11-30 01:14 | RADIOLOGY REPORT (SQ) ---
EXAM DESCRIPTION: XR CHEST 2 VIEWS COMPLETED DATE/TME: 11/30/2018 00:39 CLINICAL HISTORY: CHEST PAIN FOR ONE WEEK COMPARISON: 09/20/2018 FINDINGS: Frontal and lateral views of the chest. The cardiomediastinal silhouette has normal size and contour. No consolidation, pneumothorax, or pleural effusion. No displaced rib fractures identified. Upper abdominal soft tissues are unremarkable. IMPRESSION: 1. No acute pulmonary process identified.
--- NOTE | 2018-11-30 20:34 | EKG REPORT ---
SEVERITY:- ABNORMAL ECG - SINUS RHYTHM NONSPECIFIC T ABNORMALITIES, LATERAL LEADS : Confirmed by: Bandar Garcia 30-Nov-2018 20:33:48
== END 2018-11-30 01:29 | disposition home or self-care (01) ==
LOC: ER 20:49
DX: G50.0 Trigeminal neuralgia (principal); Z79.899 Other long term (current) drug therapy; M62.830 Muscle spasm of back; M54.5 Low back pain; R07.89 Other chest pain; R53.81 Other malaise; R05 Cough; I10 Essential (primary) hypertension; R94.31 Abnormal electrocardiogram [ECG] [EKG]; J45.909 Unspecified asthma, uncomplicated; Z88.0 Allergy status to penicillin; Z88.2 Allergy status to sulfonamides
CPT/HCPCS: 93005; 99283; 96372; 71046; 93010; J3490; J1885; J1100

== ENCOUNTER 2019-01-13 14:46 | Emergency (ER) | payer MEDICAID ==
[2019-01-13 14:53] VITALS: BP 147/94
--- NOTE | 2019-01-13 15:01 | ER Document Report ---
ED Medical Screen (RME) - General Stated Complaint: HEAD PAIN Primary Care Provider: ACRL WHITMAN MD [Primary Care Provider] - Follow up as needed Mode of Arrival: Wheelchair Information source: Relative Notes: 38-year-old female presented to ED for severe right-sided face and head pain. She states she is dealing with fibromyalgia but now she has numbness and decreased movement in her right side. 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 She is not able to speak not able to smile and not able to open her mouth. states the lights of her face has severe pain. She does cry if I touch the right side of her face. He does have equal vault mechanic. Patient is alert and oriented very tearful as per mouth or the right side of her face. Patient has equal hand grasp and is able to lift both legs equally. She does not have a palmar drift. I have greeted and performed a rapid initial assessment of this patient. A comprehensive ED assessment and evaluation of the patient, analysis of test results and completion of medical decision making process will be conducted by an additional ED providers. TRAVEL OUTSIDE OF THE [place] IN LAST 30 DAYS: No - Related Data Allergies/Adverse Reactions: Penicillins Allergy (Verified 07/01/18 12:34) Sulfa (Sulfonamide Antibiotics) Allergy (Verified 07/01/18 12:34) Past Medical History Pulmonary Medical History: Reports: Hx Asthma, Hx Pneumonia Neurological Medical History: Reports: Hx Migraine Renal/ Medical History: Denies: Hx Peritoneal Dialysis Past Surgical History: Reports: Hx Gynecologic Surgery - fallopian tube/ovary removed Physical Exam - Vital signs Vitals: Pulse Resp BP Pulse Ox 91 20 147/94 H 95 01/13/19 14:53 01/13/19 14:53 01/13/19 14:53 01/13/19 14:53 Course - Vital Signs Vital signs: Temp Pulse Resp BP Pulse Ox 91 20 147/94 H 95 01/13/19 14:53 01/13/19 14:53 01/13/19 14:53 01/13/19 14:53 Doctor's Discharge - Discharge Referrals: CARL WHITMAN MD [Primary Care Provider] - Follow up as needed
--- NOTE | 2019-01-13 15:38 | RADIOLOGY REPORT (SQ) ---
EXAM DESCRIPTION: CT HEAD WITHOUT COMPLETED DATE/TIME: 01/13/2019 3:21 pm REASON FOR STUDY: unable to speak smile increased pain right face COMPARISON: 12/16/2017 TECHNIQUE: Axial images acquired through the brain without intravenous contrast. Images reviewed wi th bone, brain and subdural windows. Additional sagittal and coronal reconstructions were generated. Images stored on PACS. All CT scanners at this facility use dose modulation, iterative reconstruction, and/or weight based d osing when appropriate to reduce radiation dose to as low as reasonably achievable (ALARA). [facility]: Dose Right [facility]: CareDose [facility]: Dose Right [facility]: Teradose 4D [facility]: [employer] RADIATION DOSE: CT Rad equipment meets quality standard of care and radiation dose reduction techniq ues were employed. CTDIvol: 53.2 mGy. DLP: 937 mGy-cm. mGy. LIMITATIONS: None. FINDINGS: VENTRICLES: Normal size and contour. CEREBRUM: No masses. No hemorrhage. No midline shift. No evidence for acute infarction. Normal gra y/white matter differentiation. No areas of low density in the white matter. CEREBELLUM: No masses. No hemorrhage. No alteration of density. No evidence for acute infarction. EXTRAAXIAL SPACES: No fluid collections. There is a redemonstrated extra-axial mass underlying the l eft tentorium containing macroscopic fat, likely a lipoma or dermoid and unchanged from prior examina tion. ORBITS AND GLOBE: No intra- or extraconal masses. Normal contour of globe without masses. CALVARIUM: No fracture. PARANASAL SINUSES: No fluid or mucosal thickening. SOFT TISSUES: No mass or hematoma. OTHER: No other significant finding. IMPRESSION: 1. No acute intracranial pathology. No noncontrast CT findings to explain symptoms. C onsider MRI to further evaluate. 2. There is a redemonstrated extra-axial mass underlying the left tentorium containing macroscopic fa t, likely a lipoma or dermoid and unchanged from prior examination. EVIDENCE OF ACUTE STROKE: NO. COMMENT: Quality ID # [id number]: Final reports with documentation of one or more dose reduction techniques (e.g., Automated exposure control, adjustment of the mA and/or kV according to patient size, use of iterative reconstruction technique) TECHNICAL DOCUMENTATION: JOB ID: [id number] [employer]- All Rights Reserved Reading location - IP/workstation name: [email or web address]
[2019-01-13 15:41] LABS: ABSOLUTE BASOPHILS # (AUTO) 0.1 10^3/uL (0.0-0.2); ABSOLUTE EOSINOPHILS # (AUTO) 0.1 10^3/uL (0.0-0.6); ABSOLUTE MONOCYTES (AUTO) 0.7 10^3/uL (0.1-1.4); ABSOLUTE NEUT (AUTO) 3.4 10^3/uL (1.7-8.2); BASOPHILS % (AUTO) 0.9 % (0-2); EOSINOPHILS % (AUTO) 1.7 % (0-6); HEMATOCRIT 45.9 % (36.0-47.0); HEMOGLOBIN 15.5 g/dL (12.0-15.5); LYMPHOCYTES % (AUTO) 32.7 % (13-45); MEAN CORPUSCULAR HEMOGLOBIN 25.3 pg (27.0-33.4); MEAN CORPUSCULAR HGB CONC 33.7 g/dL (32.0-36.0); MEAN CORPUSCULAR VOLUME 75 fl (80-97); MONOCYTES % (AUTO) 10.9 % (3-13); PLATELET COUNT 211 10^3/uL (150-450); RED BLOOD COUNT 6.11 10^6/uL (3.72-5.28); RED CELL DISTRIBUTION WIDTH 15.9 % (11.5-14.0); SEGMENTED NEUTROPHILS % (AUTO) 53.8 % (42-78); TOTAL CELLS COUNTED % (AUTO) 100 %; WHITE BLOOD COUNT 6.2 10^3/uL (4.0-10.5)
[2019-01-13 15:49] LABS: INTERNATIONAL RATION (INR) 1.07; PARTIAL THROMBOPLASTIN TIME 30.6 SEC (23.5-35.8); PROTHROMBIN TIME 13.9 SEC (11.4-15.4)
[2019-01-13] MEDS ORDERED: HYDROMORPHONE HCL INJ/PF 2 MG/ML AMPULE IV ONE (15:52)
[2019-01-13] MEDS ORDERED: ONDANSETRON HCL INJ/PF 4 MG/2 ML SDV IV ONE (15:52)
[2019-01-13 15:58] LABS: ALBUMIN 4.8 g/dL (3.5-5.0); ALKALINE PHOSPHATASE 158 U/L (38-126); ANION GAP 12 (5-19); ASPARTATE AMINO TRANSFERASE 23 U/L (14-36); BILIRUBIN,DIRECT 0.3 mg/dL (0.0-0.4); BILIRUBIN,TOTAL 0.5 mg/dL (0.2-1.3); BLOOD UREA NITROGEN 11 mg/dL (7-20); CALCIUM 9.5 mg/dL (8.4-10.2); CARBON DIOXIDE 29 mmol/L (22-30); CHLORIDE 96 mmol/L (98-107); CREATINE KINASE 81 U/L (30-135); GLUCOSE 156 mg/dL (75-110); POTASSIUM 4.2 mmol/L (3.6-5.0); TOTAL PROTEIN 8.4 g/dL (6.3-8.2)
--- NOTE | 2019-01-13 17:09 | ER Document Report ---
ED Headache - General Chief Complaint: Headache Stated Complaint: HEAD PAIN Time Seen by Provider: 01/13/19 15:01 Primary Care Provider: CARL WHITMAN MD [PEDIATRICS] - Follow up as needed Mode of Arrival: Wheelchair Information source: Patient TRAVEL OUTSIDE OF THE [place] IN LAST 30 DAYS: No - HPI Patient reports: Other - hx trigeninal neuralgia. Onset was: Gradual Timing: Still present Quality of pain: Sharp, Stabbing, Throbbing Pain Level: 4 Associated symptoms: None. denies: Chills, Confusion, Dizzy, Double/blurred vision, Fainting, Fever, Lightheaded, Memory loss, Motion sickness, Motor/se nsory loss to arm, Motor/sensory loss to leg, Nausea/vomiting, Neck pain, Photophobia, Speech problems, Stiff neck, Sweaty, Tingling/numb sensation, Trouble walking, Other Exacerbated by: denies: Light, Noise, Movement, Position, Other Notes: Patient with a history of trigeminal neuralgia who comes in with pain in her right forehead right maxilla and mandibular area in the trigeminal nerve distribution that she ran out of her t Tegretol and her Lyrica. Denies any other complaints - Related Data Allergies/Adverse Reactions: Penicillins Allergy (Verified 07/01/18 12:34) Sulfa (Sulfonamide Antibiotics) Allergy (Verified 07/01/18 12:34) Past Medical History - General Information source: Relative - Social History Smoking Status: Unknown if Ever Smoked Family History: Reviewed & Not Pertinent Patient has suicidal ideation: No Patient has homicidal ideation: No Pulmonary Medical History: Reports: Hx Asthma, Hx Pneumonia Neurological Medical History: Reports: Hx Migraine Renal/ Medical History: Denies: Hx Peritoneal Dialysis Past Surgical History: Reports: Hx Gynecologic Surgery - fallopian tube/ovary removed Review of Systems - Review of Systems Constitutional: No symptoms reported EENT: No symptoms reported Musculoskeletal: No symptoms reported Neurological/Psychological: Tingling - to face Physical Exam - Vital signs Vitals: Pulse Resp BP Pulse Ox 91 20 147/94 H 95 01/13/19 14:53 01/13/19 14:53 01/13/19 14:53 01/13/19 14:53 Notes: PHYSICAL EXAMINATION: GENERAL: Well-appearing, well-nourished and in no acute distress. HEAD: Atraumatic, normocephalic. EYES: Pupils equal round and reactive to light, extraocular movements intact, sc janette anicteric, conjunctiva are normal. ENT: nares patent, oropharynx clear without exudates. Moist mucous membranes. NECK: Normal range of motion, supple without lymphadenopathy and supple without meningismus LUNGS: Breath sounds clear to auscultation bilaterally and equal. No wheezes rales or rhonchi. HEART: Regular rate and rhythm without murmurs ABDOMEN: Soft, nontender, normoactive bowel sounds. No guarding, no rebound. No masses appreciated. EXTREMITIES: Normal range of motion, no pitting or edema. No cyanosis. NEUROLOGICAL: No focal neurological deficits. Moves all extremities spontaneously and on command. Palpation of the right trigeminal nerve in the mid maxillary forehead and mandibular area Essensa Adriane pain into the patient's face typical of trigeminal neuralgia. Rest of her neurologic exam is normal PSYCH: Normal mood, normal affect. SKIN: Warm, Dry, normal turgor, no rashes or lesions noted. Course - Vital Signs Vital signs: Temp Pulse Resp BP Pulse Ox 91 14 147/94 H 97 01/13/19 14:53 01/13/19 16:00 01/13/19 14:53 01/13/19 16:00 - Laboratory Result Diagrams: 01/13/19 15:26 01/13/19 15:26 Laboratory results interpreted by me: 01/13/19 01/13/19 15:26 15:26 RBC 6.11 H MCV 75 L MCH 25.3 L RDW 15.9 H Sodium 136.7 L Chloride 96 L Glucose 156 H Alkaline Phosphatase 158 H Total Protein 8.4 H - Diagnostic Test Radiology reviewed: Image reviewed, Reports reviewed - EKG Interpretation by Ut EKG shows normal: Sinus rhythm Rhythm: No: NSR, SVT, Arrthymia, A.Fib, A.Flutter, with a 2:1 Block, V.Tach, Torsades, V. Fib, MAT, PVC's, APC's, Other [place]/QRS: No: Right axis deviation, Left axis deviation, RBBB, LBBB, IVCD, LAHB/LAFB, LPHB/LPFB, Bifasicular block Voltage: No: Increased voltage, Consistant with LVH, Decreased voltage, Throughout, Limb leads P Waves: No: JUAN JOSÉ, LAE, Absent, AV Dissociation, Other Heart block present: No: 1st Degree, Mobitz 1, Mobitz 2, CHB (3rd degree block) - Transfer of Care Notes: 01/13/19 17:06 Patient will be given some Dilaudid here and sent home with Lyrica and Tegretol aloe up with her neurologist return if worse Discharge - Discharge Clinical Impression: Trigeminal neuralgia of right side of face Condition: Good Disposition: HOME, SELF-CARE Instructions: Pain Medication Injection ([facility]), Trigeminal Neuralgia ([facility]) Additional Instructions: Take your Lyrica and Tegretol as directed. Follow-up with your neurologist return if worse Prescriptions: Pregabalin [Lyrica 100 Mg Capsule] 100 mg PO BID PRN #30 capsule PRN Reason: Neuropathic Pain Carbamazepine [Tegretol] 200 mg PO BID #30 tablet Referrals: CARL WHITMAN MD [PEDIATRICS] - Follow up as needed
--- NOTE | 2019-01-14 18:40 | EKG REPORT ---
SEVERITY:- ABNORMAL ECG - SINUS RHYTHM LEFT ATRIAL ABNORMALITY NONSPECIFIC T ABNORMALITIES, LATERAL LEADS BORDERLINE PROLONGED QT INTERVAL : Confirmed by: Bandar Garcia 14-Jan-2019 18:40:11
== END 2019-01-13 17:53 | disposition home or self-care (01) ==
LOC: ER 14:46
DX: G50.0 Trigeminal neuralgia (principal); J45.909 Unspecified asthma, uncomplicated; Z88.0 Allergy status to penicillin; Z88.2 Allergy status to sulfonamides
CPT/HCPCS: 93005; 99284; 96374; 96375; 36415; 82553; 82550; 85025; 85610; 85730; 80053; 70450; 93010; J1170; J2405

== ENCOUNTER 2019-06-28 12:18 | Emergency (ER) | payer MEDICAID ==
[2019-06-28 12:36] VITALS: BP 180/118
[2019-06-28] MEDS ORDERED: DEXAMETHASONE SOD PHOS INJ 10 MG/1 ML VIAL IM ONE (12:49)
[2019-06-28] MEDS ORDERED: KETOROLAC TROMETHAMINE 60 MG/2 ML SDV IM ONE (12:49)
--- NOTE | 2019-06-28 12:54 | ER Document Report ---
HPI - HPI Time Seen by Provider: 06/28/19 12:39 Pain Level: 5 Notes: Patient is a 38-year-old female with w. h/o chronic low back pain x6mos w/o injury and h/o rt side trigeminal neuralgia (under care of multiple specialists) who presents to the ED complaining of ongoing chronic bilateral lower back pain. Patient states that bending twisting of the trunk make her pain worse. Pain does not radiate. She is eating and drinking without any difficulties. She is urinating normally and having normal bowel movements. She has not had any injections or procedures to her lower back. Denies any IV drug abuse. No other concerns or complaints. Denies any headache, fever, head injury, neck pain, changes in vision/speech/mentation/hearing, URI, sore throat, chest pain, palpitations, syncope, cough, shortness of breath, wheeze, dyspnea, abdominal pain, nausea/vomiting/diarrhea, urinary retention, dysuria, hematuria, loss of control of bowel or bladder, saddle anesthesia, muscle paralysis/weakness, or rash. - ROS Systems Reviewed and Negative: Yes All other systems reviewed and negative - REPRODUCTIVE Reproductive: DENIES: : Past Medical History - Social History Smoking Status: Current Every Day Smoker Frequency of alcohol use: None Drug Abuse: None Family History: Reviewed & Not Pertinent Patient has suicidal ideation: No Patient has homicidal ideation: No Pulmonary Medical History: Reports: Hx Asthma, Hx Pneumonia Neurological Medical History: Reports: Hx Migraine Renal/ Medical History: Denies: Hx Peritoneal Dialysis Past Surgical History: Reports: Hx Gynecologic Surgery - fallopian tube/ovary removed Vertical Provider Document - CONSTITUTIONAL Agree With Documented VS: Yes Notes: PHYSICAL EXAMINATION: GENERAL: Well-appearing, well-nourished and in no acute distress. LUNGS: Breath sounds clear to auscultation bilaterally and equal. No wheezes rales or rhonchi. HEART: Regular rate and rhythm without murmurs, rubs, gallops. ABDOMEN: Soft, nontender, nondistended abdomen. No guarding, no rebound. Normal bowel sounds present. No CVA tenderness bilaterally. No pulsatile mass Musculoskeletal: LE's b/l: FROM to passive/active. Strength 5+/5. No deficits noted. No bony tenderness of extremities. Back: FROM to passive/active. Strength 5+/5. No vertebral point tenderness, stepoffs, or deformities. No other bony tenderness, erythema, swelling, or ecchymosis. SLR negative b/l. + tenderness to the L-paraspinal mm b/l. Mild spasming. No SI jt tenderness. No foot drop Extremities: No cyanosis, clubbing, or edema b/l. Peripheral pulses 2+. Capi llary refill less than 2 seconds. NEUROLOGICAL: Normal speech, antalgic gait. Normal sensory, motor exams. Reflexes 2+ b/l. PSYCH: Normal mood, normal affect. SKIN: Warm, Dry, normal turgor, no rashes or lesions noted. - INFECTION CONTROL TRAVEL OUTSIDE OF THE [place] IN LAST 30 DAYS: No Course - Re-evaluation Re-evalutation: 06/28/19 12:51 Patient is an afebrile, well-hydrated, 38-year-old female who presents to the ED with chronic low back pain. Vitals are acceptable. PE is otherwise unremarkable for any focal neurological deficits. Patient was given Toradol and decadron. She has no significant tachycardia, tachypnea, or hypoxia. She is nontoxic-appearing and is tolerating p.o. without difficulties. There are no signs of infection. No other red flag symptoms noted. No other labs or imaging warranted at this time based on H&P. Low suspicion for any meningitis, fractu re, expanding/ruptured AAA, cauda equina syndrome, epidural mass lesion/abscess, herniated disc causing severe spinal stenosis, or other systemic infection at this time. Patient is aware that this condition can change from initial presentation and that she needs monitor symptoms closely for any acute changes. She has muscle relaxers and multiple other medicines for pain at home. Conservative measures otherwise for symptoms. Recheck with your PCM in 3-5 days. Consider consult with orthopedic/physical therapy. Return to the ED with any worsening/concerning symptoms otherwise as reviewed discharge. Patient is in agreement. Pt has BP med at home she has not taken today and will take when she gets home. Pt aware of the CV risks with elevated BP. No current SOB, CP, HARVEY, changes in vision or headaches outside of her normal with trigeminal neuralgia. - Vital Signs Vital signs: Temp Pulse Resp BP Pulse Ox 98.3 F 93 18 180/118 H 96 06/28/19 12:35 06/28/19 12:35 06/28/19 12:35 06/28/19 12:35 06/28/19 12:35 Discharge - Discharge Clinical Impression: Chronic low back pain Qualifiers: Back pain laterality: bilateral Sciatica presence: without sciatica Qualified Code(s): M54.5 - Low back pain; G89.29 - Other chronic pain Condition: Stable Disposition: HOME, SELF-CARE Instructions: Low Back Pain ([facility]) Additional Instructions: Rest, Ice Tylenol/ibuprofen as needed Light stretches daily Strength exercises as able Moist heat and massage may help F/u with your PCP in 3-5 days for a recheck Consider consult(s) with Orthopedics/physical therapy for ongoing/worsening symptoms Return to the ED with any worsening symptoms and/or development of fever, headache, chest pain, palpitations, syncope, shortness of breath, trouble breathing, abdominal pain, n/v/d, blood in stool/urine, loss of control of bowel/bladder, urinary retention, muscle weakness/paralysis, saddle anesthesia, numbness/tingling, or other worsening symptoms that are concerning to you. Forms: Elevated Blood Pressure, Smoking Cessation Education Referrals: [facility] [Provider Group] - Follow up as needed
== END 2019-06-28 13:34 | disposition home or self-care (01) ==
LOC: ER 12:18
DX: G89.29 Other chronic pain (principal); M54.5 Low back pain; F17.200 Nicotine dependence, unspecified, uncomplicated
CPT/HCPCS: J1885; J1100